=== PATIENT | male | born 1955 | race Caucasian/White ===

== ENCOUNTER 2018-05-08 16:27 | Inpatient (IN) | payer MEDICAID, MEDICARE, OTHER ==
[~2018-05-08] VITALS: Ht 152.4 cm; Wt 61.2 kg
--- NOTE | 2018-05-08 17:07 | Emergency Room Report ---
History of Present Illness General Chief Complaint: Generalized Weakness Source: Patient Present Illness HPI Patient sent in by his doctors for weakness. He also complains about diplopia not feeling well for one week. The patient is HIV positive on medication. Labs were performed that revealed acute renal failure. Potassium was normal but the BUN was 59 and creatinine of 4.7. These labs were done today. Also an EKG was done normal sinus rhythm with a normal EKG. He denies any headache. The double vision makes him feel ill. He denies knowing whether he has hepatitis C. He is on multiple medications including opium. OxyContin, oxycodone, Neurontin, famotidine, Kaletra, Serostim, and others. The patient denies any fevers, productive cough, chest pain, nausea, vomiting, diarrhea, dysuria he denies any weakness or change in sensation. (See further history in Clinical Course.) He is lethargic and does not answer many questions. He drove himself to the clinic and is living in his car. Allergies: Coded Allergies: TETRACYCLINE (Verified Allergy, Unknown, 04/19/09) Patient History Limited by: medical condition Past Medical History: see triage record Social History: Reports: smoking; Denies: drug use - Prior Social History Narrative lives in his car Reviewed Nursing Documentation: PMH: Agreed; PSxH: Agreed Nursing Documentation-PMH Past Medical History: No History, Except For Hx Dialysis: No - CKD Review of Systems All Other Systems: limited Physical Exam Vital Signs Date Time Temp Pulse Resp B/P (MAP) Pulse Ox O2 Delivery O2 Flow Rate FiO2 05/08/18 16:34 98.8 83 16 102/56 91 Room Air 98.8 Sp02 EP Interpretation: reviewed, abnormal - as interpreted by me General Appearance: no apparent distress, non-toxic, lethargic, other - hyperpigmented, Chronically Ill Head: normocephalic, atraumatic Eyes: bilateral eye PERRL - 2 mm, bilateral eye Scleral Injection ENT: moist mucus membranes - dried saliva sides of lips, no lingual trauma Neck: full range of motion, supple, no meningismus, no bony tend Respiratory: no respiratory distress, decreased breath sounds, other - decreased tidal volume Cardiovascular #1: regular rate, rhythm Cardiovascular #2: 2+ radial (L) Gastrointestinal: normal inspection, non tender, soft, decreased bowel sounds Genitourinary: no CVA tenderness Musculoskeletal: back normal, digits/nails normal, normal range of motion, non- tender, no calf tenderness Neurologic: responsive - lethargic, motor strength/tone normal, DTRs symmetric , sensory intact, other - asterixis Psychiatric: depressed affect Skin: other - see above Procedures Critical Care Time Critical Care Time Total Critical Care Time: 30 min bedside evaluation and treatment excludes procedures (EKG). Reason for critical care: opiate excess, respiratory acidosis, hypoxia Possible complications: hypotension, hypertension, [place], shock, arrhythmias, metabolic acidosis, end organ damage, respiratory failure. Interventions: narcan, CO2 monitoring, repeated examinations Course: Patient presents with lethargy and c/o diplopia. During evaluation, decreased responsiveness and resp depression with hypoxia. ABG with resp acidosis. Narcan administered under my supervision. Improvement with complaints of chest/shoulder pain and further evaluation. CO2 monitor applied. Multiple evaluations with CO2 more stable with considerations for Narcan drip. Assessed to be stable for telemetry with CO2 monitoring. Consultations: nursing staff, EMS, RT Performed by: Dr. Jimenez Tolerated well condition = serious Medical Decision Making Diagnostic Impression: Primary Impression: Opiate overdose Qualified Codes: T40.601A - Poisoning by unspecified narcotics, accidental ( unintentional), initial encounter Additional Impressions: Respiratory failure Qualified Codes: J96.01 - Acute respiratory failure with hypoxia; J96.02 - Acute respiratory failure with hypercapnia Acute renal failure Qualified Codes: N17.9 - Acute kidney failure, unspecified Chest wall contusion Qualified Codes: S20.211A - Contusion of right front wall of thorax, initial encounter Rhabdomyolysis Qualified Codes: T79.6XXA - Traumatic ischemia of muscle, initial encounter ER Course Patient with lethargy and lab evidence for acute renal failure. DDx: bleed, medication excess, occult infection, electrolyte abnormality, AMI, rhabdomyolysis, hypothyroidism, hepatic encephalopathy, respiratory failure amongst others. Evaluation with CT, CXR, EKG, labs. Treatment with gentle IV hydration and consideration for narcan. Complex patient with h/o HIV. EKG no injury. CXR, old rib fx and poor inspiration. Labs with normal WBC, renal failure, elevated CK. Neg ammonia and normal TSH. Hypoxia noted and oxygen started. Narcan indicated as increased lethargy with poor tidal volume. MD present with Narcan administration. After narcan, patient more awake. C/O pain in R shoulder/R chest. States he fell several days ago. Denies SI. ABG with resp acidosis. CO2 monitor applied. R shoulder with old rib fractures. Although radiologist considers possible infiltrate, this is not present on multiple views. Clinically no evidence of pneumonia at this time. CO2 slightly higher with Narcan wearing off, but acceptable. BIPAP and Narcan drip not indicated at this time. Consideration for alkalinization of urine, although concern for elevated PCO2. No indication for emergent dialysis. No urine produced in ED. Consider garcia. Admit telemetry, Dr. Ramirez (for Dr. Russell). Laboratory Tests Test 05/08/18 17:14 05/08/18 17:15 Arterial Blood pH 7.210 (7.350-7.450) Arterial Blood Partial Pressure CO2 57.4 mmHg (35.0-45.0) *H Arterial Blood Partial Pressure O2 71.9 mmHg (75.0-100.0) L Arterial Blood HCO3 22.8 mmol/L (22.0-26.0) Arterial Blood Oxygen Saturation 92.5 % (92.0-98.0) Arterial Blood Base Excess -5.8 Alberto Test Positive White Blood Count 5.5 K/UL (4.8-10.8) Red Blood Count 5.54 M/UL (4.70-6.10) Hemoglobin 15.8 G/DL (14.2-18.0) Hematocrit 49.5 % (42.0-52.0) Mean Corpuscular Volume 89 FL (80-99) Mean Corpuscular Hemoglobin 28.4 PG (27.0-31.0) Mean Corpuscular Hemoglobin Concent 31.8 G/DL (32.0-36.0) L Red Cell Distribution Width 16.1 % (11.6-14.8) H Platelet Count 253 K/UL (150-450) Mean Platelet Volume 6.7 FL (6.5-10.1) Neutrophils (%) (Auto) 70.5 % (45.0-75.0) Lymphocytes (%) (Auto) 18.5 % (20.0-45.0) L Monocytes (%) (Auto) 9.9 % (1.0-10.0) Eosinophils (%) (Auto) 0.2 % (0.0-3.0) Basophils (%) (Auto) 0.9 % (0.0-2.0) Erythrocyte Sedimentation Rate 9 MM/HR (0-20) Prothrombin Time 9.7 SEC (9.30-11.50) Prothrombin Time INR 0.9 (0.9-1.1) PTT 30 SEC (23-33) Sodium Level 139 MMOL/L (136-145) Potassium Level 5.4 MMOL/L (3.5-5.1) H Chloride Level 104 MMOL/L (98-107) Carbon Dioxide Level 27 MMOL/L (21-32) Anion Gap 8 mmol/L (5-15) Blood Urea Nitrogen 62 mg/dL (7-18) H Creatinine 5.4 MG/DL (0.55-1.30) H Estimate Glomerular Filtration Rate 10.7 mL/min (>60) Glucose Level 74 MG/DL (74-106) Lactic Acid Level 0.80 mmol/L (0.4-2.0) Calcium Level 8.7 MG/DL (8.5-10.1) Total Bilirubin 0.4 MG/DL (0.2-1.0) Aspartate Amino Transferase (AST) 121 U/L (15-37) H Alanine Aminotransferase (ALT) 78 U/L (12-78) Alkaline Phosphatase 71 U/L (46-116) Ammonia < 10 umol/L (11-32) L Total Creatine Kinase 3051 U/L (26-308) H Troponin I 0.000 ng/mL (0.000-0.056) Total Protein 6.8 G/DL (6.4-8.2) Albumin 3.6 G/DL (3.4-5.0) Globulin 3.2 g/dL Albumin/Globulin Ratio 1.1 (1.0-2.7) Lipase 154 U/L (73-393) Thyroid Stimulating Hormone (TSH) 1.530 uiU/mL (0.358-3.740) EKG Diagnostic Results Rate: normal Rhythm: NSR ST Segments: no acute changes Rhythm Strip Diag. Results EP Interpretation: yes Rhythm: NSR, no PVC's, no ectopy Chest X-Ray Diagnostic Results Chest X-Ray Diagnostic Results : Chest X-Ray Ordered: Yes # of Views/Limited/Complete: 1 View Indication: Other EP Interpretation: Yes Interpretation: no consolidation, no effusion, no pneumothorax, other - old rib fractures Impression: Other Electronically Signed by: Rupert Jimenez MD Other X-Ray Diagnostic Results Other X-Ray Diagnostic Results : X-Ray ordered: R shoulder # of Views/Limited Vs Complete: 3 View Indication: Pain EP Interpretation: Yes Interpretation: no dislocation, no soft tissue swelling, no fractures, other - multiple Ca++ bodies Impression: Other Electronically Signed by: Rupert Jimenez MD CT/MRI/US Diagnostic Results CT/MRI/US Diagnostic Results : Imaging Test Ordered: head Impression no mass, bleed, fx Last Vital Signs Date Time Temp Pulse Resp B/P (MAP) Pulse Ox O2 Delivery O2 Flow Rate FiO2 05/09/18 00:17 Nasal Cannula 2.0 05/09/18 00:00 85 05/09/18 00:00 98.3 14 141/74 (96) 98 98.3 05/08/18 20:15 100 Status: improved Disposition: ADMITTED INPATIENT Condition: Serious Rupert Jimenez M.D. May 08, 2018 17:07
[2018-05-08] MEDS: Sodium Chloride 500ML 550 ML IV SCH ×2 (17:13→22:15)
[2018-05-08] MEDS ORDERED: Naloxone 0.4mg/ml Inj IVP ONE (17:45)
[2018-05-08 17:48] LABS: BASOPHILS % (AUTO) 0.9 % (0.0-2.0); EOSINOPHILS % (AUTO) 0.2 % (0.0-3.0); HEMATOCRIT 49.5 % (42.0-52.0); HEMOGLOBIN 15.8 G/DL (14.2-18.0); LYMPHOCYTES % (AUTO) 18.5 % (20.0-45.0); MEAN CORPUSCULAR VOLUME 89 FL (80-99); MONOCYTES % (AUTO) 9.9 % (1.0-10.0); NEUTROPHILS % (AUTO) 70.5 % (45.0-75.0); PLATELET COUNT 253 K/UL (150-450); RED BLOOD COUNT 5.54 M/UL (4.70-6.10); RED CELL DISTRIBUTION WIDTH 16.1 % (11.6-14.8); WHITE BLOOD COUNT 5.5 K/UL (4.8-10.8)
[2018-05-08 17:53] LABS: INR 0.9 (0.9-1.1)
[2018-05-08 17:54] LABS: AMMONIA < 10 umol/L (11-32)
[2018-05-08 17:55] LABS: ANION GAP 8 mmol/L (5-15); BLOOD UREA NITROGEN 62 mg/dL (7-18); CALCIUM 8.7 MG/DL (8.5-10.1); CARBON DIOXIDE 27 MMOL/L (21-32); CHLORIDE 104 MMOL/L (98-107); CREATININE 5.4 MG/DL (0.55-1.30); POTASSIUM 5.4 MMOL/L (3.5-5.1); SODIUM 139 MMOL/L (136-145)
--- NOTE | 2018-05-08 18:10 | Diagnostic Imaging Report ---
EXAM: XR Abdomen, 1 View CLINICAL HISTORY: ALOC TECHNIQUE: Frontal supine view of the abdomen/pelvis. COMPARISON: No relevant prior studies available. FINDINGS: Gastrointestinal tract: No definite plain film evidence for significant bowel loop dilation to suggest an obstructive process. Bones/joints: Degenerative changes of the lumbar spine. 2 calcifications projected over the right iliac wing. Question of a vertebral body compression fracture of L2. Vasculature: Multiple calcifications projected over the pelvis which may be vascular in origin. IMPRESSION: No definite plain film evidence for significant bowel loop dilation to suggest an obstructive process.
[2018-05-08 18:13] LABS: ALANINE AMINOTRANSFERASE 78 U/L (12-78); ALBUMIN 3.6 G/DL (3.4-5.0); ALBUMIN/GLOBULIN RATIO 1.1 (1.0-2.7); ALKALINE PHOSPHATASE 71 U/L (46-116); ASPARTATE AMINO TRANSFERASE 121 U/L (15-37); BILIRUBIN,TOTAL 0.4 MG/DL (0.2-1.0); CREATINE KINASE 3051 U/L (26-308)
--- NOTE | 2018-05-08 18:13 | Diagnostic Imaging Report ---
EXAM: XR Chest, 1 View CLINICAL HISTORY: ALOC TECHNIQUE: Frontal view of the chest. COMPARISON: 01/20/15 FINDINGS: Lungs: Increased hazy opacity in the right lung suggestive of edema and/or infiltrate. Low lung volumes. Pleural space: No definite plain film evidence for pneumothorax. Heart: Prominence of the cardiomediastinal silhouette which may at least partly be related to patient rotation. Mediastinum: See above. Bones/joints: Thoracic levoscoliosis. Degenerative changes of the thoracic spine. Probable old right-sided rib fractures. Other findings: The patient is rotated to the right. IMPRESSION: Increased hazy opacity in the right lung suggestive of edema and/or infiltrate.
--- NOTE | 2018-05-08 18:21 | Diagnostic Imaging Report ---
EXAM: CT Head Without Intravenous Contrast CLINICAL HISTORY: ALOC TECHNIQUE: Axial computed tomography images of the head/brain without intravenous contrast. CTDI is 0.15, 70.38 mGy and DLP is 1456 mGy-cm. One or more of the following dose reduction techniques were used: automated exposure control, adjustment of the mA and/or kV according to patient size, use of iterative reconstruction technique. COMPARISON: 04/19/09 FINDINGS: Brain: Areas of decreased density in the periventricular white matter which are nonspecific but are likely related to mild small vessel ischemic changes. No hemorrhage. Ventricles: Unremarkable. No ventriculomegaly. Bones/joints: Unremarkable. No acute fracture. Soft tissues: Unremarkable. Sinuses: Areas of mild mucosal thickening in the paranasal sinuses. Mastoid air cells: Unremarkable as visualized. No mastoid effusion. IMPRESSION: No CT evidence for acute intracranial abnormality. Mild small vessel ischemic changes.
[2018-05-08 19:00] VITALS: BP 110/54
--- NOTE | 2018-05-08 19:37 | Diagnostic Imaging Report ---
EXAM: XR Right Shoulder Complete, 2 or More Views CLINICAL HISTORY: TRAUMA TECHNIQUE: Two or more views of the right shoulder. COMPARISON: 04/20/09 FINDINGS: Bones/joints: Multiple small ossific densities are projected lateral to the humeral head in the region of the acromion. These appear well- corticated and are likely related to old fracture fragments. Loss of the acromiohumeral distance which suggests rotator cuff pathology. Multiple old right-sided rib fractures are suspected. No definite plain film evidence for dislocation. Soft tissues: Ossific density projected superior to the humeral head which suggests calcific tendinosis. Other findings: Irregularity is noted of the humeral head which was also seen on the prior exam. IMPRESSION: 1. Multiple small ossific densities are projected lateral to the humeral head in the region of the acromion. These appear well-corticated and are likely related to old fracture fragments. 2. Loss of the acromiohumeral distance which suggests rotator cuff pathology. 3. Ossific density projected superior to the humeral head which suggests calcific tendinosis.
[2018-05-08] MEDS ORDERED: COLACE100 MG ORAL (20:00)
[2018-05-08] MEDS ORDERED: SEROSTIM6 M1 SQ (20:00)
[2018-05-08] MEDS ORDERED: ABACAVIR300 MG ORAL (20:00)
[2018-05-08] MEDS ORDERED: OXANDRIN10 MG ORAL (20:00)
[2018-05-08] MEDS ORDERED: KALETRA 200-501 EAC1 ORAL (20:00)
[2018-05-08] MEDS ORDERED: ZIAGEN300 MG ORAL (20:00)
[2018-05-08] MEDS ORDERED: ISENTRESS100 MG ORAL (20:00)
[2018-05-08] MEDS ORDERED: FAMOTIDINE20 MG ORAL (20:00)
[2018-05-08] MEDS ORDERED: XANAX2 MG ORAL (20:00)
[2018-05-08] MEDS ORDERED: CYANOCOBAL1000 MCG/M IM (20:00)
[2018-05-08] MEDS ORDERED: AVODART0.5 MG ORAL (20:00)
[2018-05-08] MEDS ORDERED: ISENTRESS25 MG ORAL (20:00)
[2018-05-08] MEDS ORDERED: ROXICODONE15 MG ORAL (20:00)
[2018-05-08] MEDS ORDERED: DEPO-TESTO100 MG/1 M IM (20:00)
[2018-05-08] MEDS ORDERED: ZYPREXA10 MG ORAL (20:00)
[2018-05-08] MEDS ORDERED: REMERON15 MG ORAL (20:00)
[2018-05-08] MEDS ORDERED: NEURONTIN100 MG ORAL (20:00)
[2018-05-08] MEDS ORDERED: OPIUM10 MG/1 ML PO (20:00)
[2018-05-08] MEDS ORDERED: FORTEO2.4 ML SUBQ (20:00)
[2018-05-08] MEDS ORDERED: MARINOL5 MG ORAL ×2 (20:00→20:03)
[2018-05-08] MEDS ORDERED: LOVENOX10 M1 SUBQ (20:00)
[2018-05-08] MEDS ORDERED: LEXAPRO10 MG ORAL (20:00)
[2018-05-08] MEDS ORDERED: TRAZODONE HCL50 MG ORAL (20:00)
[2018-05-08] MEDS ORDERED: VITAMIN D250000 UNI1 ORAL (20:00)
[2018-05-08] MEDS ORDERED: TERBINAFINE HC250 MG PO (20:00)
[2018-05-08] MEDS ORDERED: TAMSULOSIN HCL0.4 MG ORAL (20:00)
[2018-05-08] MEDS ORDERED: OXYCONTIN40 MG ORAL (20:00)
[2018-05-08] MEDS ORDERED: SAVAYSA30 MG PO (20:00)
[2018-05-08] MEDS ORDERED: ENSURE LIQUID237 ML PO (20:00)
[2018-05-08 20:05] VITALS: BP 139/63
--- NOTE | 2018-05-08 22:07 | History and Physical ---
History of Present Illness General Date patient seen: May 08, 2018 Time patient seen: 19:55 Reason for Hospitalization: Generalized Weakness Present Illness HPI 62 yo man HIV, opiate dependence sent to ED from local MD's office for lethargy and weakness In ED, patient noted to be weak and hypoxic with hypoventilaton Narcan given Labs notable for NAVID Patient admitted for further workup History via chart and ED as patient lethargic and poor historia PMHX; HIV, opiate dependence PSHx- patient unable to answer FHX: Unable to assess secondary to patient condition SHx: Unable to asss Allergies: Coded Allergies: TETRACYCLINE (Verified Allergy, Unknown, 04/19/09) Medication History Scheduled Abacavir Sulfate* (Abacavir*), 300 MG ORAL TWICE A DAY, (Reported) Alprazolam* (Xanax*), 2 MG ORAL THREE TIMES A DAY, (Reported) Cyanocobalamin (Cyanocobalamin Injection), 1,000 MCG IM QWEEK, (Reported) Docusate Sodium* (Colace*), 100 MG ORAL DAILY, (Reported) Dronabinol* (Marinol*), 5 MG ORAL BEFORE MEALS, (Reported) Dutasteride (Avodart), 0.5 MG ORAL DAILY, (Reported) Edoxaban Tosylate (Savaysa), 30 MG PO Q30 DAYS, (Reported) Enoxaparin* (Lovenox*), 60 MG SUBQ BID, (Reported) Escitalopram Oxalate* (Lexapro*), 10 MG ORAL DAILY, (Reported) Famotidine (Famotidine), 20 MG ORAL DAILY, (Reported) Gabapentin* (Neurontin*), 300 MG ORAL THREE TIMES A DAY, (Reported) Lactose-Free Food (Ensure Liquid), 237 ML PO BID, (Reported) Lopinavir/Ritonavir 200-50MG* (Kaletra 200-50MG*), 2 TAB ORAL BID, (Reported) Mirtazapine* (Remeron*), 15 MG ORAL BEDTIME, (Reported) Olanzapine* (Zyprexa*), 10 MG ORAL DAILY, (Reported) Opium Tincture (Opium), 20 MG PO THREE TIMES A DAY, (Reported) Oxandrolone (Oxandrin), 10 MG ORAL BID, (Reported) Oxycodone Hcl Er* (Oxycontin*), 60 MG ORAL EVERY 12 HOURS, (Reported) Raltegravir Potassium (Isentress), 400 MG ORAL TWICE A DAY, (Reported) Somatropin (Serostim), 6 MG SQ DAILY, (Reported) Tamsulosin Hcl (Tamsulosin Hcl*), 0.4 MG ORAL BID, (Reported) Terbinafine Hcl* (Lamisil*), 250 MG PO DAILY, (Reported) Teriparatide Acetate (Forteo), 20 MCG SUBQ DAILY, (Reported) Testosterone Cypionate (Depo-Testosterone), 100 MG IM QWEEK, (Reported) Trazodone Hcl* (Desyrel*), 50 MG ORAL BEDTIME, (Reported) Scheduled PRN OXYCODONE HCl* (Roxicodone*), 30 MG ORAL BID PRN for For Pain, (Reported) Miscellaneous Medications Ergocalciferol (Vitamin D2)* (Vitamin D*), 50,000 UNIT ORAL, (Reported) Patient History Healthcare decision maker Resuscitation status Advanced Directive on File Review of Systems Constitutional: Reports: malaise, weakness Eye: Reports: blurred vision ENT: Reports: no symptoms Respiratory: Reports: no symptoms Cardiovascular: Reports: no symptoms Gastrointestinal: Reports: no symptoms Genitourinary: Reports: no symptoms Musculoskeletal: Reports: back pain Skin: Reports: no symptoms Psychiatric: Reports: no symptoms Neurological: Reports: other - somnolence Endocrine: Reports: no symptoms Hematologic/Lymphatic: Reports: no symptoms All Other Systems: negative except mentioned in HPI Physical Exam General Appearance: lethargic, moderate distress, cachetic, thin Lines, tubes and drains: peripheral HEENT: normocephalic, atraumatic, anicteric Neck: non-tender, supple Respiratory/Chest: lungs clear, decreased breath sounds Breasts: no masses Cardiovascular/Chest: normal peripheral pulses, normal rate, regular rhythm Abdomen: normal bowel sounds, non tender, soft Genitourinary/Rectal: normal genital exam Extremities: normal range of motion Skin Exam: normal pigmentation, warm/dry, cyanotic Neurologic: disoriented Lymphatic: anterior cervical, posterior cervical (L), posterior cervical (R) Musculoskeletal: atrophy Last 24 Hour Vital Signs Date Time Temp Pulse Resp B/P (MAP) Pulse Ox O2 Delivery O2 Flow Rate FiO2 05/08/18 20:15 98.8 16 110/54 99 Nasal Cannula 2.0 100 98.8 05/08/18 20:08 67 05/08/18 20:05 99.7 73 13 139/63 (88) 98 99.7 05/08/18 19:28 98.8 98.8 05/08/18 19:00 72 16 110/54 99 Nasal Cannula 2.0 05/08/18 18:05 81 16 Nasal Cannula 2.0 100 05/08/18 16:34 98.8 83 16 102/56 91 Room Air 98.8 Laboratory Tests Test 05/08/18 17:14 05/08/18 17:15 Arterial Blood pH 7.210 (7.350-7.450) Arterial Blood Partial Pressure CO2 57.4 mmHg (35.0-45.0) *H Arterial Blood Partial Pressure O2 71.9 mmHg (75.0-100.0) L Arterial Blood HCO3 22.8 mmol/L (22.0-26.0) Arterial Blood Oxygen Saturation 92.5 % (92.0-98.0) Arterial Blood Base Excess -5.8 Alberto Test Positive White Blood Count 5.5 K/UL (4.8-10.8) Red Blood Count 5.54 M/UL (4.70-6.10) Hemoglobin 15.8 G/DL (14.2-18.0) Hematocrit 49.5 % (42.0-52.0) Mean Corpuscular Volume 89 FL (80-99) Mean Corpuscular Hemoglobin 28.4 PG (27.0-31.0) Mean Corpuscular Hemoglobin Concent 31.8 G/DL (32.0-36.0) L Red Cell Distribution Width 16.1 % (11.6-14.8) H Platelet Count 253 K/UL (150-450) Mean Platelet Volume 6.7 FL (6.5-10.1) Neutrophils (%) (Auto) 70.5 % (45.0-75.0) Lymphocytes (%) (Auto) 18.5 % (20.0-45.0) L Monocytes (%) (Auto) 9.9 % (1.0-10.0) Eosinophils (%) (Auto) 0.2 % (0.0-3.0) Basophils (%) (Auto) 0.9 % (0.0-2.0) Erythrocyte Sedimentation Rate 9 MM/HR (0-20) Prothrombin Time 9.7 SEC (9.30-11.50) Prothromb Time International Ratio 0.9 (0.9-1.1) Activated Partial Thromboplast Time 30 SEC (23-33) Sodium Level 139 MMOL/L (136-145) Potassium Level 5.4 MMOL/L (3.5-5.1) H Chloride Level 104 MMOL/L (98-107) Carbon Dioxide Level 27 MMOL/L (21-32) Anion Gap 8 mmol/L (5-15) Blood Urea Nitrogen 62 mg/dL (7-18) H Creatinine 5.4 MG/DL (0.55-1.30) H Estimat Glomerular Filtration Rate 10.7 mL/min (>60) Glucose Level 74 MG/DL (74-106) Lactic Acid Level 0.80 mmol/L (0.4-2.0) Calcium Level 8.7 MG/DL (8.5-10.1) Total Bilirubin 0.4 MG/DL (0.2-1.0) Aspartate Amino Transf (AST/SGOT) 121 U/L (15-37) H Alanine Aminotransferase (ALT/SGPT) 78 U/L (12-78) Alkaline Phosphatase 71 U/L (46-116) Ammonia < 10 umol/L (11-32) L Total Creatine Kinase 3051 U/L (26-308) H Troponin I 0.000 ng/mL (0.000-0.056) Total Protein 6.8 G/DL (6.4-8.2) Albumin 3.6 G/DL (3.4-5.0) Globulin 3.2 g/dL Albumin/Globulin Ratio 1.1 (1.0-2.7) Lipase 154 U/L (73-393) Thyroid Stimulating Hormone (TSH) 1.530 uiU/mL (0.358-3.740) Height (Feet): 5 Weight (Pounds): 130 Medications Current Medications Medications (Trade) Dose Ordered Sig/Antonio Route PRN Reason Start Time Stop Time Status Last Admin Dose Admin Sodium Chloride 550 ml @ 100 mls/hr Q5H30M IV 05/08/18 16:45 06/07/18 16:44 05/08/18 17:13 Assessment/Plan Status: deteriorating Status Narrative 62 yo man with acute respiratory failure with hypoxia, lethargy and new NAVID Acute encephalopathy likely secondary to narcotic overmedication (patient on oxycodone, oxycontin and tincture of opium) Has h/o HIV unclear CD4 count No signs for sepsis or infection currently Assessment/Plan Admit to inpatient Close monitoring given respiratory failure (improving with Narcan) Hold meds for now until patient more awake Monitor for withdrawal given opiate dependence O2 support; consider BIPAP if patient more awake Aspiration precautions NAVID- check UA, U/S Renal consult in AM avoid nephrotoxins/renally dose meds Will get more history from patient and PMD as he awakens DVT Prophylaxis: SCD's Code Status: Full Hospital Classification declaration: Based on this initial evaluation and depending on the patient's clinical course I anticipate that this patient will require hospitalization for at least 2-3 days Disposition: Once the patient is stable to leave the hospital I anticipate the patient will likely be discharged to the following environment: Home I spent 70 minutes on this patients car and 36 minutes was dedicated to counseling and care coordination Time of note may not reflect time of encounter Jose Ramirez M.D. May 08, 2018 22:07
[2018-05-08] MEDS ORDERED: oxyCODONE 15mg IR tab ORAL PRN (22:45)
[2018-05-08] MEDS ORDERED: Sodium Polystyrene Sulfonate 15gm Powder ORAL ONE (22:45)
[2018-05-09] VITALS: BP 141/74
[2018-05-09 04:00] VITALS: BP 109/56
[2018-05-09 07:22] LABS: APPEARANCE,URINE CLEAR; BILIRUBIN, URINE NEGATIVE (NEGATIVE); GLUCOSE, URINE (UA) 1+ (NEGATIVE); KETONES,URINE 1+ (NEGATIVE); LEUKOCYTE ESTERASE ,URINE 1+ (NEGATIVE); NITRITE,URINE NEGATIVE (NEGATIVE); PH,URINE 5 (4.5-8.0); PROTEIN,URINE 3+ (NEGATIVE); UROBILINOGEN,URINE NORMAL MG/DL (0.0-1.0)
[2018-05-09 07:23] LABS: COLOR,URINE YELLOW
[2018-05-09 07:45] LABS: BASOPHILS % (AUTO) 0.6 % (0.0-2.0); EOSINOPHILS % (AUTO) 1.2 % (0.0-3.0); HEMATOCRIT 46.1 % (42.0-52.0); HEMOGLOBIN 14.8 G/DL (14.2-18.0); MEAN CORPUSCULAR VOLUME 88 FL (80-99); MONOCYTES % (AUTO) 9.7 % (1.0-10.0); NEUTROPHILS % (AUTO) 61.5 % (45.0-75.0); PLATELET COUNT 243 K/UL (150-450); RED BLOOD COUNT 5.23 M/UL (4.70-6.10); RED CELL DISTRIBUTION WIDTH 16.3 % (11.6-14.8); WHITE BLOOD COUNT 4.2 K/UL (4.8-10.8)
[2018-05-09 08:00] VITALS: BP 106/59
[2018-05-09 08:13] LABS: ALANINE AMINOTRANSFERASE 69 U/L (12-78); ALBUMIN 3.2 G/DL (3.4-5.0); ALBUMIN/GLOBULIN RATIO 0.8 (1.0-2.7); ALKALINE PHOSPHATASE 67 U/L (46-116); ANION GAP 8 mmol/L (5-15); ASPARTATE AMINO TRANSFERASE 105 U/L (15-37); BILIRUBIN,TOTAL 0.6 MG/DL (0.2-1.0); BLOOD UREA NITROGEN 54 mg/dL (7-18); CALCIUM 8.7 MG/DL (8.5-10.1); CARBON DIOXIDE 26 MMOL/L (21-32); CHLORIDE 105 MMOL/L (98-107); CREATININE 4.7 MG/DL (0.55-1.30); POTASSIUM 4.4 MMOL/L (3.5-5.1); SODIUM 138 MMOL/L (136-145)
[2018-05-09] MEDS ORDERED: Naloxone 0.4mg/ml Inj IVP SCH (08:45)
[2018-05-09] MEDS ORDERED: oxyCONTIN 20mg tab ORAL SCH (09:00)
[2018-05-09] MEDS ORDERED: DiphenhydrAMINE 50mg/ml Inj IM SCH (09:45)
--- NOTE | 2018-05-09 10:19 | Diagnostic Imaging Report ---
EXAM: US Retroperitoneal Complete, Renal CLINICAL HISTORY: History of HIV and chronic renal disease TECHNIQUE: Real-time ultrasound of the retroperitoneum (complete) with image documentation. COMPARISON: No relevant prior studies available. FINDINGS: Right kidney: Right kidney measures 12.7 x 4.5 x 7.5 cm. Increased cortical echogenicity. Mild hydronephrosis. Mild bilateral perinephric fluid. Small anechoic cysts, largest 2.6 cm. No stones. Left kidney: Left kidney measures 12.1 x 6.5 x 6.5 cm. Increased cortical echogenicity. Mild hydronephrosis. Mild bilateral perinephric fluid. Small anechoic cysts, largest 2.4 cm. No stones. Bladder: Bilateral ureteral jets are seen. Urinary bladder volume 849 cc, patient unable to void. IMPRESSION: 1. Increased echogenicity bilateral kidneys, maybe medical renal disease. 2. Mild bilateral hydronephrosis. 3. Bilateral ureteral jets are seen. Distended urinary bladder, Patient unable to void. 4. Small bilateral renal cysts.
--- NOTE | 2018-05-09 10:37 | Consultation ---
Consult Note Consult Note asked to eval for renal failure- Patient sent in by his doctors for weakness. He also complains about diplopia not feeling well for one week. The patient is HIV positive on medication. Labs were performed that revealed acute renal failure. Potassium was normal but the BUN was 59 and creatinine of 4.7. These labs were done today. Also an EKG was done normal sinus rhythm with a normal EKG. He denies any headache. The double vision makes him feel ill. He denies knowing whether he has hepatitis C. He is on multiple medications including opium. OxyContin, oxycodone, Neurontin, famotidine, Kaletra, Serostim, and others. The patient denies any fevers, productive cough, chest pain, nausea, vomiting, diarrhea, dysuria he denies any weakness or change in sensation. He is lethargic and does not answer many questions. He drove himself to the clinic and is living in his car. Allergies: Coded Allergies: TETRACYCLINE (Verified Allergy, Unknown, 04/19/09) interviewed examined keep asking for opium tincture agrees to have garcia Assessment/Plan Acute renal failure- Bilateral [place] ? BPH Opium Dependence HIV Rhabdo Garcia Hydrate 2D Echo Avoid Nephrotoxics Monitor renal parameters WILMAR: 1. Increased echogenicity bilateral kidneys, maybe medical renal disease. 2. Mild bilateral hydronephrosis. 3. Bilateral ureteral jets are seen. Distended urinary bladder, Patient unable to void. 4. Small bilateral renal cysts. Madhav Colon MD May 09, 2018 10:37
[2018-05-09] MEDS ORDERED: Docusate 100mg cap ORAL SCH (11:00)
[2018-05-09] MEDS ORDERED: D5NS 1,000 ML IV SCH ×2 (11:00)
[2018-05-09] MEDS ORDERED: Tamsulosin 0.4mg cap ORAL SCH ×2 (11:00→21:00)
[2018-05-09] MEDS: D5NS 1,000 ML IV SCH ×2 (13:31→17:22)
[2018-05-09 15:40] VITALS: BP 117/86
[2018-05-09] MEDS: Tamsulosin 0.4mg cap ORAL SCH (17:17)
[2018-05-09] MEDS: Docusate 100mg cap ORAL SCH (17:17)
[2018-05-09] MEDS: oxyCONTIN 20mg tab ORAL SCH (21:19)
[2018-05-09 21:24] VITALS: BP 124/75
--- NOTE | 2018-05-09 21:45 | General Progress Note ---
Assessment/Plan Status: not improved Assessment/Plan Acute encephalopathy #acute respiratory failure with hypoxia #Narcotic overdose #opiate dependence #HIV #Acute renal failure Acute encephalopathy likely secondary to narcotic overmedication (patient on oxycodone, oxycontin and tincture of opium) Has h/o HIV unclear CD4 count No signs for sepsis or infection currently Close monitoring given respiratory failure (improving with Narcan) Monitor for withdrawal given opiate dependence O2 support Aspiration precautions NAVID- check UA U/S with mild bilateral hydro- Tao inserted Renal consulted- recs appreciated- 2D echo ordered avoid nephrotoxins/renally dose meds Will get more history from patient and PMD as he awakens DVT Prophylaxis: scd Code status: full Hospital Classification declaration: Based on this initial evaluation, and depending on the patient's clinical course, I anticipate that this patient will require hospitalization for 2-3 days. Disposition: Once the patient is stable to leave the hospital, I anticipate the patient will likely be discharged to the following environment: SNF vs Home with HH I spent 45 minutes on this patient's case, and 30minutes was dedicated to counseling and/or care coordination. Time of note may not reflect time of encounter. Subjective Date patient seen: May 09, 2018 Time patient seen: 14:44 Constitutional: Reports: malaise, weakness HEENT: Reports: no symptoms Cardiovascular: Reports: no symptoms Respiratory: Reports: no symptoms Gastrointestinal/Abdominal: Reports: no symptoms Genitourinary: Reports: no symptoms Neurologic/Psychiatric: Reports: anxiety Endocrine: Reports: no symptoms Allergies: Coded Allergies: TETRACYCLINE (Verified Allergy, Unknown, 04/19/09) All Systems: reviewed and negative except above Subjective Events of overnight noted Chart reviewed Patient resting comfortably- asking for tincture of opium No chest pain or dyspnea Intermittently confused Objective Last 24 Hour Vital Signs Date Time Temp Pulse Resp B/P (MAP) Pulse Ox O2 Delivery O2 Flow Rate FiO2 05/09/18 21:24 98.2 60 20 124/75 (91) 91 98.2 05/09/18 15:40 98.4 78 16 117/86 (96) 96 98.4 05/09/18 09:00 Nasal Cannula 2.0 05/09/18 08:00 98.0 63 18 106/59 (75) 95 98.0 05/09/18 08:00 64 05/09/18 04:00 72 05/09/18 04:00 98.7 68 13 109/56 (73) 96 98.7 05/09/18 00:17 Nasal Cannula 2.0 05/09/18 00:00 85 05/09/18 00:00 98.3 68 14 141/74 (96) 98 98.3 Intake and Output 05/08/18 05/09/18 19:00 07:00 Intake Total 1000 ml Output Total 850 ml Balance 150 ml Intake Oral 1000 ml Output Urine Total 850 ml # Voids 1 Laboratory Tests 05/09/18 05:00: Urine Color Yellow, Urine Appearance Clear, Urine pH 5, Urine Specific [place] 1.015, Urine Protein 3+H, Urine Glucose (UA) 1+H, Urine Ketones 1+H, Urine Occult Blood 4+H, Urine Nitrite Negative, Urine Bilirubin Negative, Urine Urobilinogen Normal, Urine Leukocyte Esterase 1+H, Urine RBC 2-4H, Urine WBC 2-4 , Urine Squamous Epithelial Cells Few, Urine Amorphous Sediment FewH, Urine Bacteria Few, Urine Osmolality 483H, Urine Random Sodium 26, Urine Creatinine 186.2H, Urine Opiates Screen PositiveH, Urine Barbiturates Screen Negative, Phencyclidine (PCP) Screen Negative, Urine Amphetamines Screen Negative, Urine Benzodiazepines Screen PositiveH, Urine Cocaine Screen Negative, Urine Marijuana (THC) Screen Negative 05/09/18 06:15: White Blood Count 4.2L, Red Blood Count 5.23, Hemoglobin 14.8, Hematocrit 46.1, Mean Corpuscular Volume 88, Mean Corpuscular Hemoglobin 28.2, Mean Corpuscular Hemoglobin Concent 32.0, Red Cell Distribution Width 16.3H, Platelet Count 243, Mean Platelet Volume 7.2, Neutrophils (%) (Auto) 61.5, Lymphocytes (%) (Auto) 27.0, Monocytes (%) (Auto) 9.7, Eosinophils (%) (Auto) 1.2, Basophils (%) (Auto ) 0.6, Sodium Level 138, Potassium Level 4.4, Chloride Level 105, Carbon Dioxide Level 26, Anion Gap 8, Blood Urea Nitrogen 54H, Creatinine 4.7H, Estimat Glomerular Filtration Rate 12.6, Glucose Level 130H, Calcium Level 8.7, Phosphorus Level 3.9, Total Bilirubin 0.6, Aspartate Amino Transf (AST/SGOT) 105H, Alanine Aminotransferase (ALT/SGPT) 69, Alkaline Phosphatase 67, C- Reactive Protein, Quantitative 7.8H, Total Protein 7.0, Albumin 3.2L, Globulin 3.8, Albumin/Globulin Ratio 0.8L, Prostate Specific Antigen 3.02 05/09/18 07:47: Arterial Blood pH 7.298L, Arterial Blood Partial Pressure CO2 49.2H, Arterial Blood Partial Pressure O2 84.6, Arterial Blood HCO3 23.6, Arterial Blood Oxygen Saturation 95.8, Arterial Blood Base Excess -3.3, Alberto Test Positive Height (Feet): 5 Height (Inches): 0.00 Weight (Pounds): 135 General Appearance: no apparent distress, lethargic, thin EENT: PERRL/EOMI, normal ENT inspection Neck: non-tender, supple Cardiovascular: normal peripheral pulses, normal rate, regular rhythm Respiratory/Chest: chest wall non-tender, decreased breath sounds Abdomen: normal bowel sounds, non tender, soft Pelvis: normal external exam Extremities: normal range of motion, non-tender Edema: no edema noted Arm (L), no edema noted Arm (R), no edema noted Leg (L), no edema noted Leg (R) 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 May 09, 2018 21:45
[2018-05-10] VITALS (7 sets, daily range): BP systolic 111–151; BP diastolic 73–92
[2018-05-10] MEDS: D5NS 1,000 ML IV SCH ×4 (01:12→20:50)
[2018-05-10 08:15] LABS: BASOPHILS % (AUTO) 0.4 % (0.0-2.0); EOSINOPHILS % (AUTO) 1.1 % (0.0-3.0); HEMATOCRIT 46.9 % (42.0-52.0); HEMOGLOBIN 14.8 G/DL (14.2-18.0); LYMPHOCYTES % (AUTO) 17.8 % (20.0-45.0); MEAN CORPUSCULAR VOLUME 87 FL (80-99); MONOCYTES % (AUTO) 9.8 % (1.0-10.0); NEUTROPHILS % (AUTO) 70.9 % (45.0-75.0); PLATELET COUNT 240 K/UL (150-450); RED BLOOD COUNT 5.37 M/UL (4.70-6.10); RED CELL DISTRIBUTION WIDTH 15.8 % (11.6-14.8); WHITE BLOOD COUNT 5.3 K/UL (4.8-10.8)
[2018-05-10 08:44] LABS: ALANINE AMINOTRANSFERASE 58 U/L (12-78); ALBUMIN/GLOBULIN RATIO 0.9 (1.0-2.7); ALKALINE PHOSPHATASE 52 U/L (46-116); ANION GAP 9 mmol/L (5-15); ASPARTATE AMINO TRANSFERASE 76 U/L (15-37); BILIRUBIN,TOTAL 0.6 MG/DL (0.2-1.0); BLOOD UREA NITROGEN 35 mg/dL (7-18); CARBON DIOXIDE 25 MMOL/L (21-32); CHLORIDE 108 MMOL/L (98-107); CREATINE KINASE 1205 U/L (26-308); CREATININE 3.3 MG/DL (0.55-1.30); GAMMA GLUTAMYL TRANSPEPTIDASE 66 U/L (5-85); PHOSPHORUS 2.1 MG/DL (2.5-4.9); POTASSIUM 4.7 MMOL/L (3.5-5.1); SODIUM 142 MMOL/L (136-145)
[2018-05-10] MEDS: oxyCONTIN 20mg tab ORAL SCH (09:00)
[2018-05-10] MEDS: Tamsulosin 0.4mg cap ORAL SCH ×2 (09:06→17:36)
[2018-05-10] MEDS: Docusate 100mg cap ORAL SCH ×3 (09:06→17:36)
[2018-05-10] MEDS: oxyCODONE 15mg IR tab ORAL PRN ×2 (09:08→20:46)
--- NOTE | 2018-05-10 12:17 | Nephrology Progress Note ---
Assessment/Plan Problem List: (1) Rhabdomyolysis (2) Acute renal failure (3) Opiate overdose (4) HIV disease Assessment Acute renal failure- Cr lowering Bilateral [place] ? BPH Opium Dependence HIV status Rhabdo- CPK lower Plan Tao Hydrate 2D Echo pending Avoid Nephrotoxics Monitor renal parameters and CPK WILMAR: 1. Increased echogenicity bilateral kidneys, maybe medical renal disease. 2. Mild bilateral hydronephrosis. 3. Bilateral ureteral jets are seen. Distended urinary bladder, Patient unable to void. 4. Small bilateral renal cysts. Subjective ROS Limited/Unobtainable: No Constitutional: Reports: other - feels better Objective Objective Last 24 Hour Vital Signs Date Time Temp Pulse Resp B/P (MAP) Pulse Ox O2 Delivery O2 Flow Rate FiO2 05/10/18 12:10 98.2 18 132/76 (94) 96 98.2 05/10/18 09:00 98.1 05/10/18 08:00 98.1 62 18 131/92 (105) 94 98.1 05/10/18 04:00 98.1 51 20 125/73 (90) 91 98.1 05/10/18 00:00 97.7 57 18 111/77 (88) 97.7 05/09/18 21:24 98.2 60 20 124/75 (91) 91 98.2 05/09/18 21:00 Room Air 05/09/18 15:40 98.4 78 16 117/86 (96) 96 98.4 Intake and Output 05/09/18 05/10/18 19:00 07:00 Intake Total 960 ml 1650 ml Output Total 650 ml 750 ml Balance 310 ml 900 ml Intake Oral 360 ml IV Total 600 ml 1650 ml Output Urine Total 650 ml 750 ml # Bowel Movements 1 Laboratory Tests 05/10/18 07:25: White Blood Count 5.3, Red Blood Count 5.37, Hemoglobin 14.8, Hematocrit 46.9, Mean Corpuscular Volume 87, Mean Corpuscular Hemoglobin 27.6, Mean Corpuscular Hemoglobin Concent 31.5L, Red Cell Distribution Width 15.8H, Platelet Count 240 , Mean Platelet Volume 7.0, Neutrophils (%) (Auto) 70.9, Lymphocytes (%) (Auto) 17.8L, Monocytes (%) (Auto) 9.8, Eosinophils (%) (Auto) 1.1, Basophils (%) (Auto ) 0.4, Sodium Level 142, Potassium Level 4.7, Chloride Level 108H, Carbon Dioxide Level 25, Anion Gap 9, Blood Urea Nitrogen 35H, Creatinine 3.3H, Estimat Glomerular Filtration Rate 19.0, Glucose Level 114H, Uric Acid 4.0, Calcium Level 8.0L, Phosphorus Level 2.1L, Magnesium Level 3.0H, Total Bilirubin 0.6, Gamma Glutamyl Transpeptidase 66, Aspartate Amino Transf (AST/ SGOT) 76H, Alanine Aminotransferase (ALT/SGPT) 58, Alkaline Phosphatase 52, Total Creatine Kinase 1205H, Troponin I 0.004, Pro-B-Type Natriuretic Peptide 244H, Total Protein 6.5, Albumin 3.0L, Globulin 3.5, Albumin/Globulin Ratio 0.9L Height (Feet): 5 Height (Inches): 0.00 Weight (Pounds): 135 General Appearance: no apparent distress Cardiovascular: normal rate, bradycardia Respiratory/Chest: lungs clear Abdomen: soft Madhav Colon MD May 10, 2018 12:17
--- NOTE | 2018-05-10 15:30 | General Progress Note ---
Assessment/Plan Status: unchanged Assessment/Plan Acute encephalopathy #acute respiratory failure with hypoxia #Narcotic overdose #opiate dependence #HIV #Acute renal failure- improving with IVF's #rhabdomyolysis Acute encephalopathy likely secondary to narcotic overmedication (patient on oxycodone, oxycontin and tincture of opium) Has h/o HIV unclear CD4 count No signs for sepsis or infection currently Close monitoring given respiratory failure (improving with Narcan) Monitor for withdrawal given opiate dependence O2 support/BIPAP as needed Aspiration precautions NAVID- check UA U/S with mild bilateral hydro- Tao inserted Renal consulted- recs appreciated- 2D echo ordered -CK elevated- continue IVF's. avoid nephrotoxins/renally dose meds Will get more history from PMD re: HIV- meds on hold DVT Prophylaxis: scd's Code status: full Hospital Classification declaration: Based on this initial evaluation, and depending on the patient's clinical course, I anticipate that this patient will require hospitalization for 2-3 days. Disposition: Once the patient is stable to leave the hospital, I anticipate the patient will likely be discharged to the following environment: SNF vs Home with HH I spent 45 minutes on this patient's case, and 30minutes was dedicated to counseling and/or care coordination. Subjective Date patient seen: May 10, 2018 Time patient seen: 13:55 Constitutional: Reports: malaise, weakness HEENT: Reports: no symptoms Cardiovascular: Reports: no symptoms Respiratory: Reports: cough Gastrointestinal/Abdominal: Reports: abdomen distended, constipated Genitourinary: Reports: no symptoms Neurologic/Psychiatric: Reports: no symptoms Endocrine: Reports: no symptoms Hematologic/Lymphatic: Reports: no symptoms Allergies: Coded Allergies: TETRACYCLINE (Verified Allergy, Unknown, 04/19/09) All Systems: reviewed and negative except above Subjective Events of overnight noted Chart reviewed Patient intermittently confused Asks for pain meds when sleepy Notes abdominal pain at times Tao in Objective Last 24 Hour Vital Signs Date Time Temp Pulse Resp B/P (MAP) Pulse Ox O2 Delivery O2 Flow Rate FiO2 05/10/18 12:10 98.2 56 18 132/76 (94) 96 98.2 05/10/18 09:00 98.1 05/10/18 08:00 98.1 62 18 131/92 (105) 94 98.1 05/10/18 04:00 98.1 51 20 125/73 (90) 91 98.1 05/10/18 00:00 97.7 57 18 111/77 (88) 97.7 05/09/18 21:24 98.2 60 20 124/75 (91) 91 98.2 05/09/18 21:00 Room Air 05/09/18 15:40 98.4 78 16 117/86 (96) 96 98.4 Intake and Output 05/09/18 05/10/18 19:00 07:00 Intake Total 960 ml 1650 ml Output Total 650 ml 750 ml Balance 310 ml 900 ml Intake Oral 360 ml IV Total 600 ml 1650 ml Output Urine Total 650 ml 750 ml # Bowel Movements 1 Laboratory Tests 05/10/18 07:25: White Blood Count 5.3, Red Blood Count 5.37, Hemoglobin 14.8, Hematocrit 46.9, Mean Corpuscular Volume 87, Mean Corpuscular Hemoglobin 27.6, Mean Corpuscular Hemoglobin Concent 31.5L, Red Cell Distribution Width 15.8H, Platelet Count 240 , Mean Platelet Volume 7.0, Neutrophils (%) (Auto) 70.9, Lymphocytes (%) (Auto) 17.8L, Monocytes (%) (Auto) 9.8, Eosinophils (%) (Auto) 1.1, Basophils (%) (Auto ) 0.4, Sodium Level 142, Potassium Level 4.7, Chloride Level 108H, Carbon Dioxide Level 25, Anion Gap 9, Blood Urea Nitrogen 35H, Creatinine 3.3H, Estimat Glomerular Filtration Rate 19.0, Glucose Level 114H, Uric Acid 4.0, Calcium Level 8.0L, Phosphorus Level 2.1L, Magnesium Level 3.0H, Total Bilirubin 0.6, Gamma Glutamyl Transpeptidase 66, Aspartate Amino Transf (AST/ SGOT) 76H, Alanine Aminotransferase (ALT/SGPT) 58, Alkaline Phosphatase 52, Total Creatine Kinase 1205H, Troponin I 0.004, C-Reactive Protein, Quantitative 4.3H, Pro-B-Type Natriuretic Peptide 244H, Total Protein 6.5, Albumin 3.0L, Globulin 3.5, Albumin/Globulin Ratio 0.9L Height (Feet): 5 Height (Inches): 0.00 Weight (Pounds): 135 General Appearance: no apparent distress, lethargic EENT: PERRL/EOMI Neck: non-tender, supple Cardiovascular: normal peripheral pulses, normal rate, regular rhythm Respiratory/Chest: chest wall non-tender, decreased breath sounds Abdomen: normal bowel sounds, non tender, soft Pelvis: normal external exam Extremities: normal range of motion Edema: no edema noted Arm (L), no edema noted Arm (R) Edema: trace edema Neurologic: no motor/sensory deficits Skin: normal pigmentation Lymphatic: normal anterior cervical (L), normal anterior cervical (R) Jose Ramirez M.D. May 10, 2018 15:30
--- NOTE | 2018-05-10 18:42 | Cardiology Report ---
APPROVED REPORT EKG Measurement Heart [id number] Normal sinus rhythm Normal ECG
[2018-05-11] MEDS: oxyCONTIN 20mg tab ORAL SCH ×3 (00:39→21:00)
[2018-05-11 04:00] VITALS: BP 123/77
[2018-05-11] MEDS: D5NS 1,000 ML IV SCH ×5 (04:12→23:00)
[2018-05-11 06:00] LABS: BASOPHILS % (AUTO) 0.8 % (0.0-2.0); EOSINOPHILS % (AUTO) 0.8 % (0.0-3.0); HEMATOCRIT 46.4 % (42.0-52.0); HEMOGLOBIN 14.8 G/DL (14.2-18.0); LYMPHOCYTES % (AUTO) 19.1 % (20.0-45.0); MEAN CORPUSCULAR VOLUME 87 FL (80-99); MONOCYTES % (AUTO) 9.9 % (1.0-10.0); NEUTROPHILS % (AUTO) 69.4 % (45.0-75.0); PLATELET COUNT 248 K/UL (150-450); RED BLOOD COUNT 5.33 M/UL (4.70-6.10); RED CELL DISTRIBUTION WIDTH 15.3 % (11.6-14.8); WHITE BLOOD COUNT 5.4 K/UL (4.8-10.8)
[2018-05-11 06:35] LABS: ALANINE AMINOTRANSFERASE 57 U/L (12-78); ALBUMIN/GLOBULIN RATIO 0.8 (1.0-2.7); ALKALINE PHOSPHATASE 54 U/L (46-116); ANION GAP 6 mmol/L (5-15); ASPARTATE AMINO TRANSFERASE 64 U/L (15-37); BILIRUBIN,TOTAL 0.6 MG/DL (0.2-1.0); BLOOD UREA NITROGEN 24 mg/dL (7-18); CALCIUM 8.4 MG/DL (8.5-10.1); CARBON DIOXIDE 28 MMOL/L (21-32); CHLORIDE 110 MMOL/L (98-107); CREATINE KINASE 727 U/L (26-308); CREATININE 2.8 MG/DL (0.55-1.30); PHOSPHORUS 2.1 MG/DL (2.5-4.9); SODIUM 144 MMOL/L (136-145)
[2018-05-11 07:58] VITALS: BP 135/104
[2018-05-11] MEDS: Docusate 100mg cap ORAL SCH ×3 (09:00→17:36)
[2018-05-11] MEDS ORDERED: Phospha 250 Neutral tab ORAL SCH (09:30)
[2018-05-11] MEDS: Tamsulosin 0.4mg cap ORAL SCH ×2 (09:39→17:36)
[2018-05-11 12:07] VITALS: BP 142/79
--- NOTE | 2018-05-11 12:51 | Consultation ---
History of Present Illness General Chief Complaint: Generalized Weakness Present Illness Allergies: Coded Allergies: TETRACYCLINE (Verified Allergy, Unknown, 04/19/09) Medication History Scheduled Abacavir Sulfate* (Abacavir*), 300 MG ORAL TWICE A DAY, (Reported) Alprazolam* (Xanax*), 2 MG ORAL THREE TIMES A DAY, (Reported) Cyanocobalamin (Cyanocobalamin Injection), 1,000 MCG IM QWEEK, (Reported) Docusate Sodium* (Colace*), 100 MG ORAL DAILY, (Reported) Dronabinol* (Marinol*), 5 MG ORAL BEFORE MEALS, (Reported) Dutasteride (Avodart), 0.5 MG ORAL DAILY, (Reported) Edoxaban Tosylate (Savaysa), 30 MG PO Q30 DAYS, (Reported) Enoxaparin* (Lovenox*), 60 MG SUBQ BID, (Reported) Escitalopram Oxalate* (Lexapro*), 10 MG ORAL DAILY, (Reported) Famotidine (Famotidine), 20 MG ORAL DAILY, (Reported) Gabapentin* (Neurontin*), 300 MG ORAL THREE TIMES A DAY, (Reported) Lactose-Free Food (Ensure Liquid), 237 ML PO BID, (Reported) Lopinavir/Ritonavir 200-50MG* (Kaletra 200-50MG*), 2 TAB ORAL BID, (Reported) Mirtazapine* (Remeron*), 15 MG ORAL BEDTIME, (Reported) Olanzapine* (Zyprexa*), 10 MG ORAL DAILY, (Reported) Opium Tincture (Opium), 20 MG PO THREE TIMES A DAY, (Reported) Oxandrolone (Oxandrin), 10 MG ORAL BID, (Reported) Oxycodone Hcl Er* (Oxycontin*), 60 MG ORAL EVERY 12 HOURS, (Reported) Raltegravir Potassium (Isentress), 400 MG ORAL TWICE A DAY, (Reported) Somatropin (Serostim), 6 MG SQ DAILY, (Reported) Tamsulosin Hcl (Tamsulosin Hcl*), 0.4 MG ORAL BID, (Reported) Terbinafine Hcl* (Lamisil*), 250 MG PO DAILY, (Reported) Teriparatide Acetate (Forteo), 20 MCG SUBQ DAILY, (Reported) Testosterone Cypionate (Depo-Testosterone), 100 MG IM QWEEK, (Reported) Trazodone Hcl* (Desyrel*), 50 MG ORAL BEDTIME, (Reported) Scheduled PRN OXYCODONE HCl* (Roxicodone*), 30 MG ORAL BID PRN for For Pain, (Reported) Miscellaneous Medications Ergocalciferol (Vitamin D2)* (Vitamin D*), 50,000 UNIT ORAL, (Reported) Patient History Healthcare decision maker Resuscitation status Full Code Advanced Directive on File No Physical Exam Last 24 Hour Vital Signs Date Time Temp Pulse Resp B/P (MAP) Pulse Ox O2 Delivery O2 Flow Rate FiO2 05/11/18 12:07 97.9 57 16 142/79 (100) 100 97.9 05/11/18 09:38 46 05/11/18 07:58 99.3 44 16 135/104 (114) 97 99.3 05/11/18 04:00 98.1 51 18 123/77 (92) 98 98.1 05/10/18 23:58 98.1 47 17 151/81 (104) 97 98.1 05/10/18 19:54 98.1 57 18 142/81 (101) 96 98.1 05/10/18 19:54 52 05/10/18 16:00 98.4 62 18 149/87 (107) 98 98.4 Intake and Output 05/10/18 05/11/18 19:00 07:00 Intake Total 2010 ml 1433 ml Output Total 800 ml 550 ml Balance 1210 ml 883 ml Intake Oral 360 ml 120 ml IV Total 1650 ml 1313 ml Output Urine Total 800 ml 550 ml # Bowel Movements 2 Laboratory Tests Test 05/11/18 05:05 White Blood Count 5.4 K/UL (4.8-10.8) Red Blood Count 5.33 M/UL (4.70-6.10) Hemoglobin 14.8 G/DL (14.2-18.0) Hematocrit 46.4 % (42.0-52.0) Mean Corpuscular Volume 87 FL (80-99) Mean Corpuscular Hemoglobin 27.8 PG (27.0-31.0) Mean Corpuscular Hemoglobin Concent 31.9 G/DL (32.0-36.0) L Red Cell Distribution Width 15.3 % (11.6-14.8) H Platelet Count 248 K/UL (150-450) Mean Platelet Volume 7.3 FL (6.5-10.1) Neutrophils (%) (Auto) 69.4 % (45.0-75.0) Lymphocytes (%) (Auto) 19.1 % (20.0-45.0) L Monocytes (%) (Auto) 9.9 % (1.0-10.0) Eosinophils (%) (Auto) 0.8 % (0.0-3.0) Basophils (%) (Auto) 0.8 % (0.0-2.0) Sodium Level 144 MMOL/L (136-145) Potassium Level 5.0 MMOL/L (3.5-5.1) Chloride Level 110 MMOL/L (98-107) H Carbon Dioxide Level 28 MMOL/L (21-32) Anion Gap 6 mmol/L (5-15) Blood Urea Nitrogen 24 mg/dL (7-18) H Creatinine 2.8 MG/DL (0.55-1.30) H Estimat Glomerular Filtration Rate 22.9 mL/min (>60) Glucose Level 106 MG/DL (74-106) Hemoglobin A1c 5.8 % (4.3-6.0) Uric Acid 3.5 MG/DL (2.6-7.2) Calcium Level 8.4 MG/DL (8.5-10.1) L Phosphorus Level 2.1 MG/DL (2.5-4.9) L Magnesium Level 2.6 MG/DL (1.8-2.4) H Total Bilirubin 0.6 MG/DL (0.2-1.0) Aspartate Amino Transf (AST/SGOT) 64 U/L (15-37) H Alanine Aminotransferase (ALT/SGPT) 57 U/L (12-78) Alkaline Phosphatase 54 U/L (46-116) Total Creatine Kinase 727 U/L (26-308) H Pro-B-Type Natriuretic Peptide 1139 pg/mL (0-125) H Total Protein 6.6 G/DL (6.4-8.2) Albumin 3.0 G/DL (3.4-5.0) L Globulin 3.6 g/dL Albumin/Globulin Ratio 0.8 (1.0-2.7) L Height (Feet): 5 Height (Inches): 0.00 Weight (Pounds): 135 Medications Current Medications Medications (Trade) Dose Ordered Sig/Antonio Route PRN Reason Start Time Stop Time Status Last Admin Dose Admin Dextrose/Sodium Chloride 1,000 ml @ 150 mls/hr Q6H40M IV 05/09/18 13:00 06/08/18 10:59 05/11/18 11:48 Docusate Sodium (Colace) 100 mg TID ORAL 05/10/18 13:00 06/08/18 10:59 Ondansetron HCl (Zofran) 4 mg Q6H PRN IVP Nausea & Vomiting 05/09/18 13:00 06/07/18 12:59 05/10/18 15:21 Oxycodone HCl (OxyCONTIN) 60 mg Q12H ORAL 05/09/18 21:00 05/16/18 08:59 05/11/18 00:39 Oxycodone HCl (Roxicodone) 30 mg BIDPRN PRN ORAL For BREAKTHRU Pain 05/09/18 13:00 05/16/18 12:59 05/10/18 20:46 Pantoprazole (Protonix) 40 mg DAILY ORAL 05/10/18 09:00 06/08/18 10:59 05/10/18 09:06 Tamsulosin HCl (Flomax) 0.4 mg BID ORAL 05/09/18 18:00 06/08/18 10:59 05/11/18 09:39 Gucci Damon MD May 11, 2018 12:51
--- NOTE | 2018-05-11 12:53 | Nephrology Progress Note ---
Assessment/Plan Problem List: (1) Rhabdomyolysis (2) Acute renal failure (3) Opiate overdose (4) HIV disease Assessment Acute renal failure- Cr lowering Bilateral [place] ? BPH Opium Dependence HIV status Rhabdo- CPK lower Plan DC Tao Hydrate 2D Echo pending Avoid Nephrotoxics Monitor renal parameters and CPK WILMAR: 1. Increased echogenicity bilateral kidneys, maybe medical renal disease. 2. Mild bilateral hydronephrosis. 3. Bilateral ureteral jets are seen. Distended urinary bladder, Patient unable to void. 4. Small bilateral renal cysts. Subjective ROS Limited/Unobtainable: No Constitutional: Reports: weakness Objective Objective Last 24 Hour Vital Signs Date Time Temp Pulse Resp B/P (MAP) Pulse Ox O2 Delivery O2 Flow Rate FiO2 05/11/18 12:07 97.9 57 16 142/79 (100) 100 97.9 05/11/18 09:38 46 05/11/18 07:58 99.3 44 16 135/104 (114) 97 99.3 05/11/18 04:00 98.1 51 18 123/77 (92) 98 98.1 05/10/18 23:58 98.1 47 17 151/81 (104) 97 98.1 05/10/18 19:54 98.1 57 18 142/81 (101) 96 98.1 05/10/18 19:54 52 05/10/18 16:00 98.4 62 18 149/87 (107) 98 98.4 Intake and Output 05/10/18 05/11/18 19:00 07:00 Intake Total 2010 ml 1433 ml Output Total 800 ml 550 ml Balance 1210 ml 883 ml Intake Oral 360 ml 120 ml IV Total 1650 ml 1313 ml Output Urine Total 800 ml 550 ml # Bowel Movements 2 Laboratory Tests 05/11/18 05:05: White Blood Count 5.4, Red Blood Count 5.33, Hemoglobin 14.8, Hematocrit 46.4, Mean Corpuscular Volume 87, Mean Corpuscular Hemoglobin 27.8, Mean Corpuscular Hemoglobin Concent 31.9L, Red Cell Distribution Width 15.3H, Platelet Count 248 , Mean Platelet Volume 7.3, Neutrophils (%) (Auto) 69.4, Lymphocytes (%) (Auto) 19.1L, Monocytes (%) (Auto) 9.9, Eosinophils (%) (Auto) 0.8, Basophils (%) (Auto ) 0.8, Sodium Level 144, Potassium Level 5.0, Chloride Level 110H, Carbon Dioxide Level 28, Anion Gap 6, Blood Urea Nitrogen 24H, Creatinine 2.8H, Estimat Glomerular Filtration Rate 22.9, Glucose Level 106, Hemoglobin A1c 5.8, Uric Acid 3.5, Calcium Level 8.4L, Phosphorus Level 2.1L, Magnesium Level 2.6H, Total Bilirubin 0.6, Aspartate Amino Transf (AST/SGOT) 64H, Alanine Aminotransferase (ALT/SGPT) 57, Alkaline Phosphatase 54, Total Creatine Kinase 727H, Pro-B-Type Natriuretic Peptide 1139H, Total Protein 6.6, Albumin 3.0L, Globulin 3.6, Albumin/Globulin Ratio 0.8L Height (Feet): 5 Height (Inches): 0.00 Weight (Pounds): 135 General Appearance: no apparent distress Neck: normal alignment Cardiovascular: normal rate Respiratory/Chest: lungs clear Abdomen: soft Objective no change Madhav Colon MD May 11, 2018 12:53
--- NOTE | 2018-05-11 14:38 | General Progress Note ---
Assessment/Plan Status: stable, progressing Assessment/Plan #Acute encephalopathy #acute respiratory failure with hypoxia #Narcotic overdose #opiate dependence #HIV #Acute renal failure- improving with IVF's #rhabdomyolysis #Bradycardia Acute encephalopathy likely secondary to narcotic overmedication (patient on oxycodone, oxycontin and tincture of opium) Has h/o HIV unclear CD4 count. F/u CD4 count No signs for sepsis or infection currently Close monitoring given respiratory failure (improving with Narcan) Monitor for withdrawal given opiate dependence O2 support/BIPAP as needed Aspiration precautions NAVID- check UA U/S with mild bilateral hydro- s/p garcia, sc'ed today. monitor urine output/do voiding trial. Renal consulted- recs appreciated CK elevated- continue IVF's. avoid nephrotoxins/renally dose meds HIV- meds on hold as possible etiology for NAVID vs. rhabdo. Will need f/u with outpatient ID Check EKG. Tele monitoring for bradycardia DVT Prophylaxis: scd's Code status: full Hospital Classification declaration: Based on this initial evaluation, and depending on the patient's clinical course, I anticipate that this patient will require hospitalization for 2-3 days. Disposition: Once the patient is stable to leave the hospital, I anticipate the patient will likely be discharged to the following environment: SNF vs Home with HH I spent 45 minutes on this patient's case, and 30minutes was dedicated to counseling and/or care coordination. Subjective Date patient seen: May 11, 2018 Allergies: Coded Allergies: TETRACYCLINE (Verified Allergy, Unknown, 04/19/09) Subjective - AF, HDS - Cr downtrending - bradycardic to 46-56 today - denies cp, sob - garcia catheter removed. no void yet Objective Last 24 Hour Vital Signs Date Time Temp Pulse Resp B/P (MAP) Pulse Ox O2 Delivery O2 Flow Rate FiO2 05/11/18 12:07 97.9 57 16 142/79 (100) 100 97.9 05/11/18 09:38 46 05/11/18 07:58 99.3 44 16 135/104 (114) 97 99.3 05/11/18 04:00 98.1 51 18 123/77 (92) 98 98.1 05/10/18 23:58 98.1 47 17 151/81 (104) 97 98.1 05/10/18 19:54 98.1 57 18 142/81 (101) 96 98.1 05/10/18 19:54 52 05/10/18 16:00 98.4 62 18 149/87 (107) 98 98.4 Intake and Output 05/10/18 05/11/18 19:00 07:00 Intake Total 2010 ml 1433 ml Output Total 800 ml 550 ml Balance 1210 ml 883 ml Intake Oral 360 ml 120 ml IV Total 1650 ml 1313 ml Output Urine Total 800 ml 550 ml # Bowel Movements 2 Laboratory Tests 05/11/18 05:05: White Blood Count 5.4, Red Blood Count 5.33, Hemoglobin 14.8, Hematocrit 46.4, Mean Corpuscular Volume 87, Mean Corpuscular Hemoglobin 27.8, Mean Corpuscular Hemoglobin Concent 31.9L, Red Cell Distribution Width 15.3H, Platelet Count 248 , Mean Platelet Volume 7.3, Neutrophils (%) (Auto) 69.4, Lymphocytes (%) (Auto) 19.1L, Monocytes (%) (Auto) 9.9, Eosinophils (%) (Auto) 0.8, Basophils (%) (Auto ) 0.8, Sodium Level 144, Potassium Level 5.0, Chloride Level 110H, Carbon Dioxide Level 28, Anion Gap 6, Blood Urea Nitrogen 24H, Creatinine 2.8H, Estimat Glomerular Filtration Rate 22.9, Glucose Level 106, Hemoglobin A1c 5.8, Uric Acid 3.5, Calcium Level 8.4L, Phosphorus Level 2.1L, Magnesium Level 2.6H, Total Bilirubin 0.6, Aspartate Amino Transf (AST/SGOT) 64H, Alanine Aminotransferase (ALT/SGPT) 57, Alkaline Phosphatase 54, Total Creatine Kinase 727H, Pro-B-Type Natriuretic Peptide 1139H, Total Protein 6.6, Albumin 3.0L, Globulin 3.6, Albumin/Globulin Ratio 0.8L Height (Feet): 5 Height (Inches): 0.00 Weight (Pounds): 135 General Appearance: no apparent distress, alert EENT: PERRL/EOMI, normal ENT inspection Neck: non-tender, normal alignment, supple Cardiovascular: normal peripheral pulses, regular rhythm, bradycardia Respiratory/Chest: chest wall non-tender, lungs clear, normal breath sounds Abdomen: normal bowel sounds, non tender, soft 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
[2018-05-11 16:02] VITALS: BP 149/96
[2018-05-11] MEDS ORDERED: D5NS 1000ml IV ONE (16:43)
[2018-05-11] MEDS ORDERED: Tubing IV Secondary IV ONE (16:43)
--- NOTE | 2018-05-11 18:57 | Consultation ---
History of Present Illness General Date patient seen: May 11, 2018 Chief Complaint: Generalized Weakness Present Illness HPI 62 yo man HIV, opiate dependence sent to ED from local MD's office for lethargy and weakness the pt was agitated over the weekend and was given a cocktail shot the pt is calm still disoriented to time and place/ the pt has waxing waning of consciousness Allergies: Coded Allergies: TETRACYCLINE (Verified Allergy, Unknown, 04/19/09) Medication History Scheduled Abacavir Sulfate* (Abacavir*), 300 MG ORAL TWICE A DAY, (Reported) Alprazolam* (Xanax*), 2 MG ORAL THREE TIMES A DAY, (Reported) Cyanocobalamin (Cyanocobalamin Injection), 1,000 MCG IM QWEEK, (Reported) Docusate Sodium* (Colace*), 100 MG ORAL DAILY, (Reported) Dronabinol* (Marinol*), 5 MG ORAL BEFORE MEALS, (Reported) Dutasteride (Avodart), 0.5 MG ORAL DAILY, (Reported) Edoxaban Tosylate (Savaysa), 30 MG PO Q30 DAYS, (Reported) Enoxaparin* (Lovenox*), 60 MG SUBQ BID, (Reported) Escitalopram Oxalate* (Lexapro*), 10 MG ORAL DAILY, (Reported) Famotidine (Famotidine), 20 MG ORAL DAILY, (Reported) Gabapentin* (Neurontin*), 300 MG ORAL THREE TIMES A DAY, (Reported) Lactose-Free Food (Ensure Liquid), 237 ML PO BID, (Reported) Lopinavir/Ritonavir 200-50MG* (Kaletra 200-50MG*), 2 TAB ORAL BID, (Reported) Mirtazapine* (Remeron*), 15 MG ORAL BEDTIME, (Reported) Olanzapine* (Zyprexa*), 10 MG ORAL DAILY, (Reported) Opium Tincture (Opium), 20 MG PO THREE TIMES A DAY, (Reported) Oxandrolone (Oxandrin), 10 MG ORAL BID, (Reported) Oxycodone Hcl Er* (Oxycontin*), 60 MG ORAL EVERY 12 HOURS, (Reported) Raltegravir Potassium (Isentress), 400 MG ORAL TWICE A DAY, (Reported) Somatropin (Serostim), 6 MG SQ DAILY, (Reported) Tamsulosin Hcl (Tamsulosin Hcl*), 0.4 MG ORAL BID, (Reported) Terbinafine Hcl* (Lamisil*), 250 MG PO DAILY, (Reported) Teriparatide Acetate (Forteo), 20 MCG SUBQ DAILY, (Reported) Testosterone Cypionate (Depo-Testosterone), 100 MG IM QWEEK, (Reported) Trazodone Hcl* (Desyrel*), 50 MG ORAL BEDTIME, (Reported) Scheduled PRN OXYCODONE HCl* (Roxicodone*), 30 MG ORAL BID PRN for For Pain, (Reported) Miscellaneous Medications Ergocalciferol (Vitamin D2)* (Vitamin D*), 50,000 UNIT ORAL, (Reported) Patient History Limited by: medical condition History Provided By: Patient, Medical Record Healthcare decision maker Resuscitation status Full Code Advanced Directive on File No Review of Systems Psychiatric: Reports: prior hx, anxiety, depressed feelings, emotional problems Physical Exam General Appearance: no apparent distress, alert, confused Last 24 Hour Vital Signs Date Time Temp Pulse Resp B/P (MAP) Pulse Ox O2 Delivery O2 Flow Rate FiO2 05/11/18 16:02 97.7 58 16 149/96 (113) 99 97.7 05/11/18 12:07 97.9 57 16 142/79 (100) 100 97.9 05/11/18 09:38 46 05/11/18 07:58 99.3 44 16 135/104 (114) 97 99.3 05/11/18 04:00 98.1 51 18 123/77 (92) 98 98.1 05/10/18 23:58 98.1 47 17 151/81 (104) 97 98.1 05/10/18 19:54 98.1 57 18 142/81 (101) 96 98.1 05/10/18 19:54 52 Intake and Output 05/10/18 05/11/18 19:00 07:00 Intake Total 2010 ml 1433 ml Output Total 800 ml 550 ml Balance 1210 ml 883 ml Intake Oral 360 ml 120 ml IV Total 1650 ml 1313 ml Output Urine Total 800 ml 550 ml # Bowel Movements 2 Laboratory Tests Test 05/11/18 05:05 05/11/18 16:15 White Blood Count 5.4 K/UL (4.8-10.8) Pending Red Blood Count 5.33 M/UL (4.70-6.10) Hemoglobin 14.8 G/DL (14.2-18.0) Hematocrit 46.4 % (42.0-52.0) Mean Corpuscular Volume 87 FL (80-99) Mean Corpuscular Hemoglobin 27.8 PG (27.0-31.0) Mean Corpuscular Hemoglobin Concent 31.9 G/DL (32.0-36.0) L Red Cell Distribution Width 15.3 % (11.6-14.8) H Platelet Count 248 K/UL (150-450) Mean Platelet Volume 7.3 FL (6.5-10.1) Neutrophils (%) (Auto) 69.4 % (45.0-75.0) Lymphocytes (%) (Auto) 19.1 % (20.0-45.0) L Monocytes (%) (Auto) 9.9 % (1.0-10.0) Eosinophils (%) (Auto) 0.8 % (0.0-3.0) Basophils (%) (Auto) 0.8 % (0.0-2.0) Sodium Level 144 MMOL/L (136-145) Potassium Level 5.0 MMOL/L (3.5-5.1) Chloride Level 110 MMOL/L (98-107) H Carbon Dioxide Level 28 MMOL/L (21-32) Anion Gap 6 mmol/L (5-15) Blood Urea Nitrogen 24 mg/dL (7-18) H Creatinine 2.8 MG/DL (0.55-1.30) H Estimat Glomerular Filtration Rate 22.9 mL/min (>60) Glucose Level 106 MG/DL (74-106) Hemoglobin A1c 5.8 % (4.3-6.0) Uric Acid 3.5 MG/DL (2.6-7.2) Calcium Level 8.4 MG/DL (8.5-10.1) L Phosphorus Level 2.1 MG/DL (2.5-4.9) L Magnesium Level 2.6 MG/DL (1.8-2.4) H Total Bilirubin 0.6 MG/DL (0.2-1.0) Aspartate Amino Transf (AST/SGOT) 64 U/L (15-37) H Alanine Aminotransferase (ALT/SGPT) 57 U/L (12-78) Alkaline Phosphatase 54 U/L (46-116) Total Creatine Kinase 727 U/L (26-308) H Pro-B-Type Natriuretic Peptide 1139 pg/mL (0-125) H Total Protein 6.6 G/DL (6.4-8.2) Albumin 3.0 G/DL (3.4-5.0) L Globulin 3.6 g/dL Albumin/Globulin Ratio 0.8 (1.0-2.7) L Lymphocytes Pending Percent CD3 Cells Pending Absolute CD3 Count Pending Percent CD4 Cells Pending Absolute CD4 Count Pending T-Lymphocyte CD4/CD8 Ratio Pending Percent CD8 Cells Pending Absolute CD8 Count Pending Height (Feet): 5 Height (Inches): 0.00 Weight (Pounds): 135 Medications Current Medications Medications (Trade) Dose Ordered Sig/Antonio Route PRN Reason Start Time Stop Time Status Last Admin Dose Admin Dextrose/Sodium Chloride 1,000 ml @ 150 mls/hr Q6H40M IV 05/09/18 13:00 06/08/18 10:59 05/11/18 18:17 Docusate Sodium (Colace) 100 mg TID ORAL 05/10/18 13:00 06/08/18 10:59 Finasteride (Proscar) 5 mg DAILY ORAL 05/11/18 12:55 06/10/18 12:54 05/11/18 13:40 Ondansetron HCl (Zofran) 4 mg Q6H PRN IVP Nausea & Vomiting 05/09/18 13:00 06/07/18 12:59 05/11/18 16:03 Oxycodone HCl (OxyCONTIN) 60 mg Q12H ORAL 05/09/18 21:00 05/16/18 08:59 05/11/18 00:39 Oxycodone HCl (Roxicodone) 30 mg BIDPRN PRN ORAL For BREAKTHRU Pain 05/09/18 13:00 05/16/18 12:59 05/10/18 20:46 Pantoprazole (Protonix) 40 mg DAILY ORAL 05/10/18 09:00 06/08/18 10:59 05/10/18 09:06 Tamsulosin HCl (Flomax) 0.4 mg BID ORAL 05/09/18 18:00 06/08/18 10:59 05/11/18 17:36 Assessment/Plan Assessment/Plan encephalopathy no agitation remeron 7.5 mg qhs Gucci Damon MD May 11, 2018 18:57
[2018-05-11 19:30] VITALS: BP 124/87
[2018-05-12] VITALS: BP 176/81
[2018-05-12 04:00] VITALS: BP 155/59
[2018-05-12 05:44] LABS: BASOPHILS % (AUTO) 0.9 % (0.0-2.0); EOSINOPHILS % (AUTO) 0.5 % (0.0-3.0); HEMATOCRIT 49.5 % (42.0-52.0); LYMPHOCYTES % (AUTO) 12.6 % (20.0-45.0); MEAN CORPUSCULAR VOLUME 86 FL (80-99); MONOCYTES % (AUTO) 9.1 % (1.0-10.0); NEUTROPHILS % (AUTO) 76.9 % (45.0-75.0); PLATELET COUNT 314 K/UL (150-450); RED BLOOD COUNT 5.79 M/UL (4.70-6.10); RED CELL DISTRIBUTION WIDTH 15.1 % (11.6-14.8); WHITE BLOOD COUNT 7.7 K/UL (4.8-10.8)
[2018-05-12] MEDS: D5NS 1,000 ML IV SCH ×2 (05:46→12:37)
[2018-05-12 06:05] LABS: ALANINE AMINOTRANSFERASE 66 U/L (12-78); ALBUMIN 3.5 G/DL (3.4-5.0); ALBUMIN/GLOBULIN RATIO 0.9 (1.0-2.7); ALKALINE PHOSPHATASE 66 U/L (46-116); ANION GAP 10 mmol/L (5-15); ASPARTATE AMINO TRANSFERASE 72 U/L (15-37); BILIRUBIN,TOTAL 0.9 MG/DL (0.2-1.0); BLOOD UREA NITROGEN 18 mg/dL (7-18); CALCIUM 8.8 MG/DL (8.5-10.1); CARBON DIOXIDE 25 MMOL/L (21-32); CHLORIDE 107 MMOL/L (98-107); CREATININE 2.1 MG/DL (0.55-1.30); PHOSPHORUS 1.9 MG/DL (2.5-4.9); POTASSIUM 3.9 MMOL/L (3.5-5.1); SODIUM 141 MMOL/L (136-145)
[2018-05-12 08:00] VITALS: BP 151/80
[2018-05-12] MEDS: Docusate 100mg cap ORAL SCH ×2 (08:03→12:37)
[2018-05-12] MEDS ORDERED: Tamsulosin 0.4mg cap ORAL SCH (09:00)
[2018-05-12] MEDS ORDERED: oxyCONTIN 20mg tab ORAL SCH (09:00)
[2018-05-12] MEDS: Phospha 250 Neutral tab ORAL SCH ×2 (10:23→12:38)
--- NOTE | 2018-05-12 11:28 | Nephrology Progress Note ---
Assessment/Plan Problem List: (1) Rhabdomyolysis (2) Acute renal failure (3) Opiate overdose (4) HIV disease (5) Bradyarrhythmia Assessment Bradyarrythmia Acute renal failure- Cr lowering Bilateral [place] ? BPH Opium Dependence HIV status Rhabdo- CPK lower Plan start Hydralazine DC Tao Hydrate 2D Echo noted- Avoid Nephrotoxics Monitor renal parameters and CPK WILMAR: 1. Increased echogenicity bilateral kidneys, maybe medical renal disease. 2. Mild bilateral hydronephrosis. 3. Bilateral ureteral jets are seen. Distended urinary bladder, Patient unable to void. 4. Small bilateral renal cysts. Subjective ROS Limited/Unobtainable: No Constitutional: Reports: malaise Objective Objective Last 24 Hour Vital Signs Date Time Temp Pulse Resp B/P (MAP) Pulse Ox O2 Delivery O2 Flow Rate FiO2 05/12/18 08:00 97.5 43 20 151/80 (103) 99 97.5 05/12/18 08:00 47 05/12/18 04:00 47 05/12/18 04:00 97.4 48 22 155/59 (91) 98 97.4 05/12/18 00:00 35 05/12/18 00:00 97.7 62 22 176/81 (112) 98 97.7 05/11/18 19:30 98.6 46 18 124/87 (99) 100 98.6 05/11/18 16:02 97.7 58 16 149/96 (113) 99 97.7 05/11/18 12:07 97.9 57 16 142/79 (100) 100 97.9 Intake and Output 05/11/18 05/12/18 19:00 07:00 Intake Total 2280 ml 450 ml Output Total 1000 ml Balance 1280 ml 450 ml Intake Oral 480 ml IV Total 1800 ml 450 ml Output Urine Total 1000 ml # Voids 3 4 # Bowel Movements 1 Laboratory Tests 05/11/18 16:15: White Blood Count [Pending], Lymphocytes [Pending], Percent CD3 Cells [Pending] , Absolute CD3 Count [Pending], Percent CD4 Cells [Pending], Absolute CD4 Count [Pending], T-Lymphocyte CD4/CD8 Ratio [Pending], Percent CD8 Cells [Pending], Absolute CD8 Count [Pending] 05/12/18 05:00: White Blood Count 7.7, Red Blood Count 5.79, Hemoglobin 16.0, Hematocrit 49.5, Mean Corpuscular Volume 86, Mean Corpuscular Hemoglobin 27.6, Mean Corpuscular Hemoglobin Concent 32.2, Red Cell Distribution Width 15.1H, Platelet Count 314, Mean Platelet Volume 7.1, Neutrophils (%) (Auto) 76.9H, Lymphocytes (%) (Auto) 12.6L, Monocytes (%) (Auto) 9.1, Eosinophils (%) (Auto) 0.5, Basophils (%) (Auto ) 0.9, Sodium Level 141, Potassium Level 3.9, Chloride Level 107, Carbon Dioxide Level 25, Anion Gap 10, Blood Urea Nitrogen 18, Creatinine 2.1H, Estimat Glomerular Filtration Rate 32.0, Glucose Level 90, Calcium Level 8.8, Phosphorus Level 1.9L, Magnesium Level 2.0, Total Bilirubin 0.9, Aspartate Amino Transf (AST/SGOT) 72H, Alanine Aminotransferase (ALT/SGPT) 66, Alkaline Phosphatase 66, Total Protein 7.2, Albumin 3.5, Globulin 3.7, Albumin/Globulin Ratio 0.9L Height (Feet): 5 Height (Inches): 0.00 Weight (Pounds): 135 Cardiovascular: bradycardia Respiratory/Chest: lungs clear Abdomen: soft Objective no change Madhav Colon MD May 12, 2018 11:28
--- NOTE | 2018-05-12 11:46 | General Progress Note ---
Assessment/Plan Assessment/Plan encephalopathy due to gmc no agitation remeron 7.5 mg qhs Subjective Date patient seen: May 12, 2018 Neurologic/Psychiatric: Reports: anxiety, depressed Allergies: Coded Allergies: TETRACYCLINE (Verified Allergy, Unknown, 04/19/09) Objective Last 24 Hour Vital Signs Date Time Temp Pulse Resp B/P (MAP) Pulse Ox O2 Delivery O2 Flow Rate FiO2 05/12/18 08:00 97.5 43 20 151/80 (103) 99 97.5 05/12/18 08:00 47 05/12/18 04:00 47 05/12/18 04:00 97.4 48 22 155/59 (91) 98 97.4 05/12/18 00:00 35 05/12/18 00:00 97.7 62 22 176/81 (112) 98 97.7 05/11/18 19:30 98.6 46 18 124/87 (99) 100 98.6 05/11/18 16:02 97.7 58 16 149/96 (113) 99 97.7 05/11/18 12:07 97.9 57 16 142/79 (100) 100 97.9 Intake and Output 05/11/18 05/12/18 19:00 07:00 Intake Total 2280 ml 450 ml Output Total 1000 ml Balance 1280 ml 450 ml Intake Oral 480 ml IV Total 1800 ml 450 ml Output Urine Total 1000 ml # Voids 3 4 # Bowel Movements 1 Laboratory Tests 05/11/18 16:15: White Blood Count [Pending], Lymphocytes [Pending], Percent CD3 Cells [Pending] , Absolute CD3 Count [Pending], Percent CD4 Cells [Pending], Absolute CD4 Count [Pending], T-Lymphocyte CD4/CD8 Ratio [Pending], Percent CD8 Cells [Pending], Absolute CD8 Count [Pending] 05/12/18 05:00: White Blood Count 7.7, Red Blood Count 5.79, Hemoglobin 16.0, Hematocrit 49.5, Mean Corpuscular Volume 86, Mean Corpuscular Hemoglobin 27.6, Mean Corpuscular Hemoglobin Concent 32.2, Red Cell Distribution Width 15.1H, Platelet Count 314, Mean Platelet Volume 7.1, Neutrophils (%) (Auto) 76.9H, Lymphocytes (%) (Auto) 12.6L, Monocytes (%) (Auto) 9.1, Eosinophils (%) (Auto) 0.5, Basophils (%) (Auto ) 0.9, Sodium Level 141, Potassium Level 3.9, Chloride Level 107, Carbon Dioxide Level 25, Anion Gap 10, Blood Urea Nitrogen 18, Creatinine 2.1H, Estimat Glomerular Filtration Rate 32.0, Glucose Level 90, Calcium Level 8.8, Phosphorus Level 1.9L, Magnesium Level 2.0, Total Bilirubin 0.9, Aspartate Amino Transf (AST/SGOT) 72H, Alanine Aminotransferase (ALT/SGPT) 66, Alkaline Phosphatase 66, Total Protein 7.2, Albumin 3.5, Globulin 3.7, Albumin/Globulin Ratio 0.9L Height (Feet): 5 Height (Inches): 0.00 Weight (Pounds): 135 General Appearance: no apparent distress, alert Gucci Damon MD May 12, 2018 11:46
[2018-05-12 12:00] VITALS: BP 153/82
[2018-05-12] MEDS ORDERED: HydrALAZINE 10mg Tab ORAL SCH (12:00)
--- NOTE | 2018-05-12 12:12 | Consultation ---
History of Present Illness General Date patient seen: May 12, 2018 Chief Complaint: Generalized Weakness Reason for Consultation: Bradycardi Present Illness HPI 62 yo man HIV, opiate dependence sent to ED from local MD's office for lethargy and weakness and acute encephalopathy likely secondary to narcotic overmedication (patient on oxycodone, oxycontin and tincture of opium) Cardiology consulted for bradycardia. No syncope, no Chest pain. Echo with preserved LV function. Allergies: Coded Allergies: TETRACYCLINE (Verified Allergy, Unknown, 04/19/09) Medication History Scheduled Abacavir Sulfate* (Abacavir*), 300 MG ORAL TWICE A DAY, (Reported) Alprazolam* (Xanax*), 2 MG ORAL THREE TIMES A DAY, (Reported) Cyanocobalamin (Cyanocobalamin Injection), 1,000 MCG IM QWEEK, (Reported) Docusate Sodium* (Colace*), 100 MG ORAL DAILY, (Reported) Dronabinol* (Marinol*), 5 MG ORAL BEFORE MEALS, (Reported) Dutasteride (Avodart), 0.5 MG ORAL DAILY, (Reported) Edoxaban Tosylate (Savaysa), 30 MG PO Q30 DAYS, (Reported) Enoxaparin* (Lovenox*), 60 MG SUBQ BID, (Reported) Escitalopram Oxalate* (Lexapro*), 10 MG ORAL DAILY, (Reported) Famotidine (Famotidine), 20 MG ORAL DAILY, (Reported) Gabapentin* (Neurontin*), 300 MG ORAL THREE TIMES A DAY, (Reported) Lactose-Free Food (Ensure Liquid), 237 ML PO BID, (Reported) Lopinavir/Ritonavir 200-50MG* (Kaletra 200-50MG*), 2 TAB ORAL BID, (Reported) Mirtazapine* (Remeron*), 15 MG ORAL BEDTIME, (Reported) Olanzapine* (Zyprexa*), 10 MG ORAL DAILY, (Reported) Opium Tincture (Opium), 20 MG PO THREE TIMES A DAY, (Reported) Oxandrolone (Oxandrin), 10 MG ORAL BID, (Reported) Oxycodone Hcl Er* (Oxycontin*), 60 MG ORAL EVERY 12 HOURS, (Reported) Raltegravir Potassium (Isentress), 400 MG ORAL TWICE A DAY, (Reported) Somatropin (Serostim), 6 MG SQ DAILY, (Reported) Tamsulosin Hcl (Tamsulosin Hcl*), 0.4 MG ORAL BID, (Reported) Terbinafine Hcl* (Lamisil*), 250 MG PO DAILY, (Reported) Teriparatide Acetate (Forteo), 20 MCG SUBQ DAILY, (Reported) Testosterone Cypionate (Depo-Testosterone), 100 MG IM QWEEK, (Reported) Trazodone Hcl* (Desyrel*), 50 MG ORAL BEDTIME, (Reported) Scheduled PRN OXYCODONE HCl* (Roxicodone*), 30 MG ORAL BID PRN for For Pain, (Reported) Miscellaneous Medications Ergocalciferol (Vitamin D2)* (Vitamin D*), 50,000 UNIT ORAL, (Reported) Patient History Healthcare decision maker Resuscitation status Full Code Advanced Directive on File No Review of Systems Constitutional: Reports: malaise, weakness Eye: Reports: no symptoms ENT: Reports: no symptoms Respiratory: Reports: no symptoms Cardiovascular: Reports: no symptoms Gastrointestinal: Reports: no symptoms Genitourinary: Reports: no symptoms Musculoskeletal: Reports: no symptoms Skin: Reports: no symptoms Psychiatric: Reports: no symptoms Neurological: Reports: no symptoms Endocrine: Reports: no symptoms Hematologic/Lymphatic: Reports: no symptoms Physical Exam General Appearance: no apparent distress, alert Lines, tubes and drains: peripheral HEENT: normocephalic, atraumatic Neck: non-tender, normal alignment Respiratory/Chest: chest wall non-tender, lungs clear Cardiovascular/Chest: normal peripheral pulses, regular rhythm, bradycardia Abdomen: normal bowel sounds, non tender, soft, no organomegaly Extremities: normal range of motion, non-tender Skin Exam: normal pigmentation, warm/dry 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, no motor/sensory deficits Last 24 Hour Vital Signs Date Time Temp Pulse Resp B/P (MAP) Pulse Ox O2 Delivery O2 Flow Rate FiO2 05/12/18 08:00 97.5 43 20 151/80 (103) 99 97.5 05/12/18 08:00 47 05/12/18 04:00 47 05/12/18 04:00 97.4 48 22 155/59 (91) 98 97.4 05/12/18 00:00 35 05/12/18 00:00 97.7 62 22 176/81 (112) 98 97.7 05/11/18 19:30 98.6 46 18 124/87 (99) 100 98.6 05/11/18 16:02 97.7 58 16 149/96 (113) 99 97.7 05/11/18 12:07 97.9 57 16 142/79 (100) 100 97.9 Intake and Output 05/11/18 05/12/18 19:00 07:00 Intake Total 2280 ml 450 ml Output Total 1000 ml Balance 1280 ml 450 ml Intake Oral 480 ml IV Total 1800 ml 450 ml Output Urine Total 1000 ml # Voids 3 4 # Bowel Movements 1 Laboratory Tests Test 05/11/18 16:15 05/12/18 05:00 White Blood Count Pending 7.7 K/UL (4.8-10.8) Lymphocytes Pending Percent CD3 Cells Pending Absolute CD3 Count Pending Percent CD4 Cells Pending Absolute CD4 Count Pending T-Lymphocyte CD4/CD8 Ratio Pending Percent CD8 Cells Pending Absolute CD8 Count Pending Red Blood Count 5.79 M/UL (4.70-6.10) Hemoglobin 16.0 G/DL (14.2-18.0) Hematocrit 49.5 % (42.0-52.0) Mean Corpuscular Volume 86 FL (80-99) Mean Corpuscular Hemoglobin 27.6 PG (27.0-31.0) Mean Corpuscular Hemoglobin Concent 32.2 G/DL (32.0-36.0) Red Cell Distribution Width 15.1 % (11.6-14.8) H Platelet Count 314 K/UL (150-450) Mean Platelet Volume 7.1 FL (6.5-10.1) Neutrophils (%) (Auto) 76.9 % (45.0-75.0) H Lymphocytes (%) (Auto) 12.6 % (20.0-45.0) L Monocytes (%) (Auto) 9.1 % (1.0-10.0) Eosinophils (%) (Auto) 0.5 % (0.0-3.0) Basophils (%) (Auto) 0.9 % (0.0-2.0) Sodium Level 141 MMOL/L (136-145) Potassium Level 3.9 MMOL/L (3.5-5.1) Chloride Level 107 MMOL/L (98-107) Carbon Dioxide Level 25 MMOL/L (21-32) Anion Gap 10 mmol/L (5-15) Blood Urea Nitrogen 18 mg/dL (7-18) Creatinine 2.1 MG/DL (0.55-1.30) H Estimat Glomerular Filtration Rate 32.0 mL/min (>60) Glucose Level 90 MG/DL (74-106) Calcium Level 8.8 MG/DL (8.5-10.1) Phosphorus Level 1.9 MG/DL (2.5-4.9) L Magnesium Level 2.0 MG/DL (1.8-2.4) Total Bilirubin 0.9 MG/DL (0.2-1.0) Aspartate Amino Transf (AST/SGOT) 72 U/L (15-37) H Alanine Aminotransferase (ALT/SGPT) 66 U/L (12-78) Alkaline Phosphatase 66 U/L (46-116) Total Protein 7.2 G/DL (6.4-8.2) Albumin 3.5 G/DL (3.4-5.0) Globulin 3.7 g/dL Albumin/Globulin Ratio 0.9 (1.0-2.7) L Height (Feet): 5 Height (Inches): 0.00 Weight (Pounds): 135 Medications Current Medications Medications (Trade) Dose Ordered Sig/Antonio Route PRN Reason Start Time Stop Time Status Last Admin Dose Admin Dextrose/Sodium Chloride 1,000 ml @ 150 mls/hr Q6H40M IV 05/11/18 23:00 06/08/18 10:59 05/12/18 05:46 Docusate Sodium (Colace) 100 mg TID ORAL 05/12/18 09:00 06/08/18 10:59 Finasteride (Proscar) 5 mg DAILY ORAL 05/12/18 09:00 06/10/18 12:54 05/12/18 08:03 Hydralazine HCl (Apresoline) 10 mg Q6HR ORAL 05/12/18 12:00 06/11/18 11:59 Mirtazapine (Remeron) 7.5 mg BEDTIME ORAL 05/12/18 21:00 06/10/18 20:59 Ondansetron HCl (Zofran) 4 mg Q6H PRN IVP Nausea & Vomiting 05/12/18 01:00 06/07/18 12:59 Oxycodone HCl (OxyCONTIN) 60 mg Q12H ORAL 05/12/18 09:00 05/16/18 08:59 Oxycodone HCl (Roxicodone) 30 mg BIDPRN PRN ORAL For BREAKTHRU Pain 05/12/18 13:00 05/16/18 12:59 Pantoprazole (Protonix) 40 mg DAILY ORAL 05/12/18 09:00 06/08/18 10:59 05/12/18 08:03 Phosphorus (Phospha 250 Neutral) 500 mg THREE TIMES A DAY ORAL 05/12/18 10:15 06/11/18 10:14 05/12/18 10:23 Tamsulosin HCl (Flomax) 0.4 mg BID ORAL 05/12/18 09:00 06/08/18 10:59 05/12/18 08:03 Assessment/Plan Status: stable Assessment/Plan Assessment (1) Rhabdomyolysis (2) Acute renal failure (3) Opiate overdose (4) HIV disease (5) Bradyarrhythmia Assessment: Patient has sinus bradycardia with no syncope and appropriate heart rate rise with exertion. He likely has sick sinus syndrome but no permanent pacing is indicated given he has appropriate heart rate rise with exertion. Contributing to his bradycardia were his opiate medications and sedatives. His echo shows a structurally normal LV. Outpatient stress test Ziop[facility] Ok to discharge Rupert Etienne M.D. May 12, 2018 12:12
[2018-05-12 12:37] VITALS: BP 153/82
[2018-05-12] MEDS ORDERED: oxyCODONE 15mg IR tab ORAL PRN (13:00)
[2018-05-12] MEDS ORDERED: CEPHALEXIN500 MG ORAL (14:32)
--- NOTE | 2018-05-12 15:34 | Cardiology Report ---
APPROVED REPORT EKG Measurement Heart [id number] Marked sinus bradycardia Left axis deviation Abnormal ECG
[2018-05-12] MEDS ORDERED: D5NS 1000ml IV ONE ×2 (17:01)
--- NOTE | 2018-05-13 13:21 | Cardiology Report ---
APPROVED REPORT EXAM: Two-dimensional and M-mode echocardiogram with Doppler and color Doppler. INDICATION Congestive Heart Failure Technically limited and difficult study due to poor acoustical windows. M-mode measurements not obtainable due to cardiac structure. Normal left ventricular chamber size, systolic function and wall motion. Left ventricular ejection fraction estimated to be 60-65%. No evidence of left ventricular hypertrophy. No evidence of pericardial or pleural effusion. Right cardiac chamber sizes are within normal limits. Mild left atrial enlargement by 2D. Focal aortic valve sclerosis with adequate cusp excursion. Thickened mitral valve leaflets with normal excursion. Mild mitral annulus and aortic root calcification. Pulmonic valve not well visualized. Normal tricuspid valve structure. IVC dilated at 2.6 cm non-collapsible with respiration indicate increased RA pressure. A color flow and spectral Doppler study was performed and revealed: No aortic regurgitation. No mitral regurgitation. Mitral diastolic velocities suggest reduced left ventricular relaxation c/w diastolic dysfunction. Trace to mild tricuspid regurgitation. Tricuspid systolic velocities suggests peak right ventricular systolic pressure of 46 mmHg Consistent with moderate pulmonary hypertension.
--- NOTE | 2018-05-14 14:06 | Discharge Summary ---
Discharge Summary Hospital Course Date of Admission May 08, 2018 at 17:12 Date of Discharge May 12, 2018 at 17:02 Admitting Diagnosis CHF HPI Lb Talamantes is a 62 year old male who was admitted on May 08, 2018 at 17: 12 for Congestive Heart Failure Discharge Discharge Disposition Patient was discharged to Home with Home Health(06) Obdulia Pressley NP May 14, 2018 14:06
--- NOTE | 2018-05-22 15:20 | Discharge Summary ---
Discharge Summary Discharge Summary _ DATE OF ADMISSION: 05/08/2018 DATE OF DISCHARGE: 05/12/2018 CONSULTANTS: Dr. Madhav Damon BRIEF HOSPITAL COURSE: Patient is a 62-year-old male, with history of HIV and opiate dependence was sent to the emergency room from a local doctor's office due to lethargy and weakness. He had blood work done that showed renal failure BUN of 59 and creatinine was 4.7. At ED, patient was noted to be weak and hypoxic and was hypoventilating. He was given IV hydration. Narcan was given. After Narcan administration, patient became more awake and complained of pain on the right shoulder and chest. X-ray showed old rib fractures. ABG showed respiratory acidosis. CO2 monitor was applied. EKG showed normal sinus rhythm with no acute changes. Head CT with no evidence of acute intracranial abnormality. Patient was then admitted for evaluation of acute respiratory failure and acute kidney injury. Respiratory status was monitored. Patient has acute encephalopathy likely secondary to narcotic overmedication (patient on oxycodone, OxyContin and tincture of opium). He was monitored for withdrawal symptoms. He was placed on aspiration precaution. Advertising Columnist was consulted. Tao catheter was inserted. Renal ultrasound showed increased echogenicity on bilateral kidneys with mild bilateral hydronephrosis, bilateral ureteral jets, distended urinary bladder. He was given Proscar daily and Flomax twice a day. Patient was anxious and depressed. He was seen by psychiatrist. He was given Remeron at bedtime. He had episodes of bradycardia, wallpaper installer was consulted. Patient denied chest pain. No syncope. Echocardiogram done showed ejection fraction of 60-65 % with moderate pulmonary hypertension. There was appropriate heart rate rice with exertion. Patient was assessed to have likely sick sinus syndrome but no permanent pacing indicated this time. Contributing to bradycardia were opiate medications and sedatives. Echocardiogram showed structurally normal left ventricle. He was recommended outpatient stress test and Ziopatch upon discharge. Urine culture with growth of enterococcus. Tao catheter was removed. Patient was voiding freely. Patient was cleared for discharge home to continue po antibiotics upon discharge. FINAL DIAGNOSES: Acute encephalopathy likely secondary to narcotic overmedication Acute respiratory failure with hypoxia Narcotic overdose Opiate dependence HIV Acute renal failure Rhabdomyolysis Bradycardia Bilateral hydronephrosis Possible BPH Agitation UTI with enterococcus DISPOSITION: Patient was discharged home. DISCHARGE MEDICATIONS: Refer to Discharge Medication List. Continue with Keflex 7 days DISCHARGE INSTRUCTIONS: Follow up with PCP in a week. I have been assigned to dictate discharge summary on this account, and I was not involved in the patient's management. Irma Guallpa NP May 22, 2018 15:20
== END 2018-05-12 17:02 | disposition home health service (06) | DRG 917 ==
LOC: EDBD 16:33 → EMR 17:07 → 2E 17:12 → ENRESERV 18:00 → EDBEDREQ 18:03 → 4E 05-09 12:50 → 2E 05-11 22:19
DX: T40.2X1A Poisoning by other opioids, accidental (unintentional), initial encounter (principal); J96.01 Acute respiratory failure with hypoxia; G92 Toxic encephalopathy; B20 Human immunodeficiency virus [HIV] disease; N17.9 Acute kidney failure, unspecified; F11.20 Opioid dependence, uncomplicated; M62.82 Rhabdomyolysis; N39.0 Urinary tract infection, site not specified; N13.30 Unspecified hydronephrosis; T40.0X1A Poisoning by opium, accidental (unintentional), initial encounter; I49.5 Sick sinus syndrome; Z88.8 Allergy status to other drugs, medicaments and biological substances; N28.1 Cyst of kidney, acquired; R00.1 Bradycardia, unspecified; B95.2 Enterococcus as the cause of diseases classified elsewhere
CPT/HCPCS: 36415; 36600; 70450; 71045; 74018; 76770; 80053; 80307; 81003; 82140; 82550; 82570; 82803; 82977; 83036; 83605; 83690; 83735; 83880; 83935; 84100; 84153; 84300; 84443; 84484; 84550; 85025; 85610; 85651; 85730; 86140; 86360; 87081; 87086; 87181; 93005; 93306; C9399; J2405